=== PATIENT | female | born 1995 | race Caucasian/White ===

== ENCOUNTER 2016-10-19 16:40 | Emergency (ER) ==
[2016-10-19 16:52] VITALS: BP 160/106; TEMP 98.8; BMI 27.1
[2016-10-19] MEDS ORDERED: ATIVAN IM STA (16:59)
[2016-10-19] MEDS ORDERED: LOPRESSOR PO STA (16:59)
[2016-10-19 17:09] LABS: BASOPHILS # (AUTO) 0.1 K/uL (0-0.2); BASOPHILS % (AUTO) 0.7 % (0.0-3.0); EOSINOPHILS # (AUTO) 0.2 K/ul (0.0-0.7); EOSINOPHILS % (AUTO) 1.8 % (0.0-7.0); HEMATOCRIT 40.5 % (37.0-47.0); IMMATURE GRANULOCYTE % (AUTO) 0.4 % (0.0-5.0); LYMPHOCYTES # (AUTO) 2.7 K/uL (0.60-3.4); LYMPHOCYTES % (AUTO) 25.5 (10.0-50.0); MEAN CORPUSCULAR HEMOGLOBIN 32.4 pg (27.0-31.0); MEAN CORPUSCULAR HGB CONC 34.6 (31.8-35.4); MEAN CORPUSCULAR VOLUME 93.8 fl (81.0-99.0); MONOCYTES # (AUTO) 0.5 K/uL (0.4-2.0); MONOCYTES % (AUTO) 5.1 (0-10); NEUTROPHILS # (AUTO) 7.1 K/ul (2.0-6.9); NEUTROPHILS % (AUTO) 66.5; PLATELET COUNT 281 10^3/uL (140-440); RED BLOOD COUNT 4.32 10^6/ul (4.20-5.40); WHITE BLOOD COUNT 10.69 K/ul (4.6-10.2)
[2016-10-19 17:22] LABS: SERUM PREGNANCY INTERNAL QC INTERNAL QC VALID
[2016-10-19 17:49] LABS: ALANINE AMINOTRANSFERASE 17 U/L (12-78); ALBUMIN 4.3 g/dL (3.4-5.0); ALBUMIN/GLOBULIN RATIO 1.39; ALKALINE PHOSPHATASE 68 U/L (42-98); ASPARTATE AMINO TRANSFERASE 14 U/L (15-37); BLOOD UREA NITROGEN 13 mg/dL (7-18); BUN/CREATININE RATIO 16.45; CALCIUM 9.3 mg/dL (8.2-10.2); CARBON DIOXIDE 23 mmol/L (21-32); CHLORIDE 106 mmol/L (98-107); CREATINE KINASE 47 U/L; CREATININE 0.79 mg/dL (0.60-1.30); GLUCOSE 89 mg/dL (70-110); SODIUM 141 mmol/L (136-145); TOTAL PROTEIN 7.4 g/dL (6.4-8.2)
[2016-10-19] MEDS ORDERED: NORVASC PO STA (17:57)
--- NOTE | 2016-10-19 18:12 | ED.PDOC ---
General ED Provider: Dr. MARGARITO LEONE-ER Chief Complaint: Hypertension Stated Complaint: my bp is up and my pulse is racing Time Seen by Physician: 16:45 Mode of Arrival: Walk-In Information Source: Patient Exam Limitations: No limitations Primary Care Provider: MARGARITO LEONE Nursing and Triage Documentation Reviewed and Agree: Yes Psychological Complaint Exam - Psychiatric Complaint/Exam Patient Complains Of: Present: Other Onset/Duration: thsi evening Symptoms Are: Still present Episodes Lasting: Hours Initial Severity: Mild Current Severity: Moderate Character: Present: Fearful, Anxious Associated Signs And Symptoms: Denies: Hostile, Confused, Hallucinating, Paranoid behavior, Sleep disturbance, Appetite change Completed Suicide Risk Factors: Patient In Custody Of Police: No Social Withdrawal Present: No Social Isolation Present: No Prior Suicide Attempt: No Injury From Prior Suicide Attempt: No Related Surgical History: Reports: None Patient Uncooperative For Exam: No Mood: Present: Anxious Appearance: Present: Clean Thought Process: Present: Logical Insight: Present: Good Memory: Intact Judgement: Normal Danger To Others: No Patient Medically Stable For: Psych evaluation Differential Diagnoses: Anxiety Review of Systems - Review Of Systems Constitutional: Reports: No symptoms Eyes: Reports: No symptoms Ears, Nose, Mouth, Throat: Reports: No symptoms Respiratory: Reports: No symptoms Cardiac: Reports: No symptoms GI: Reports: No symptoms : Reports: No symptoms Musculoskeletal: Reports: No symptoms Skin: Reports: No symptoms Neurological: Reports: Anxiety Endocrine: Reports: No symptoms Hematologic/Lymphatic: Reports: No symptoms All Other Systems: Reviewed and Negative Past Medical History - Past Medical History Previously Healthy: Yes Endocrine: Reports: None Cardiovascular: Reports: None Respiratory: Reports: None Hematological: Reports: None Gastrointestinal: Reports: None Genitourinary: Reports: None Neuro/Psych: Reports: Anxiety Musculoskeletal: Reports: None Cancer: Reports: None Last Menstrual Period: 10/04/16 - Surgical History General Surgical History: Reports: Unknown - Family History Family History: Reports: Unknown - Social History Smoking Status: Current every day smoker Hx Substance Use: No Alcohol Screening: Occasionally Lives: With family - Immunizations Tetanus Shot up to Date: Yes Physical Exam - Physical Exam Appearance: Well-appearing, No pain distress, Well-nourished Eyes: FIONA, EOMI, Conjunctiva clear ENT: Ears normal, Nose normal, Oropharynx normal Neck: Supple Respiratory: Airway patent, Breath sounds clear, Breath sounds equal, Respirations nonlabored Cardiovascular: RRR, Pulses normal, No rub, No murmur, Tachycardia GI/: Soft, Nontender, No masses, Bowel sounds normal, No Organomegaly Musculoskeletal: Normal strength, ROM intact, No edema, No calf tenderness Skin: Warm, Dry, Normal color Neurological: Sensation intact, Motor intact, Reflexes intact, Cranial nerves intact, Alert, Oriented Psychiatric: Anxious Re-Evaluation - Re-Evaluation Time of Re-Evaluation: 18:12 Status: Improved (bp 130/85) Vital Signs Stable: Yes Pain Level: 0 Appearance: NAD Lungs: Clear Skin: Warm and Dry Neuro: Alert and Oriented X3 CV: RRR Critical Care Note - Critical Care Note Total Time (mins): 0 Course - Course Hematology/Chemistry: 10/19/16 16:46 10/19/16 17:00 Orders, Labs, Meds: Lab Review 10/19/16 10/19/16 16:46 17:00 WBC 10.69 H RBC 4.32 Hgb 14.0 Hct 40.5 MCV 93.8 MCH 32.4 H MCHC 34.6 RDW Coeff of Johnathan 12.0 Plt Count 281 Immature Gran % (Auto) 0.4 Neut % (Auto) 66.5 Lymph % (Auto) 25.5 Pope % (Auto) 5.1 Eos % (Auto) 1.8 Baso % (Auto) 0.7 Immature Gran # (Auto) 0.0 Neut # 7.1 H Lymph # 2.7 Pope # 0.5 Eos # 0.2 Baso # 0.1 D-Dimer < 0.19 L Sodium 141 Potassium 4.0 Chloride 106 Carbon Dioxide 23 Anion Gap 16.0 BUN 13 Creatinine 0.79 Estimated GFR (MDRD) 90.00 BUN/Creatinine Ratio 16.45 Glucose 89 Calcium 9.3 Total Bilirubin 0.20 AST 14 L ALT 17 Alkaline Phosphatase 68 Total Creatine Kinase 47 Troponin I < 0.0100 Total Protein 7.4 Albumin 4.3 Globulin 3.1 Albumin/Globulin Ratio 1.39 TSH 0.899 Free T4 0.90 Serum , Qual Negative Orders Category Date Time Status EKG-(ED ONLY) Stat CARDIO 10/19/16 16:46 Completed Director Of Entertainment [ED MANAGER INVESTMENT BANKING APPLIED] .ONCE EMERGENCY 10/19/16 17:00 Active CBC W/ AUTO DIFF Stat LAB 10/19/16 16:46 Completed COMPREHENSIVE METABOLIC PANEL Stat LAB 10/19/16 17:00 Completed CREATINE KINASE Stat LAB 10/19/16 17:00 Completed D-DIMER Stat LAB 10/19/16 17:00 Completed FREE T4 (FREE THYROXINE) Stat LAB 10/19/16 17:00 Completed SERUM Stat LAB 10/19/16 17:00 Completed THYROID STIMULATING HORMONE Stat LAB 10/19/16 17:00 Completed TROPONIN I Stat LAB 10/19/16 17:00 Completed Amlodipine Besylate [Norvasc] MEDS 10/19/16 17:57 Discontinued 5 mg PO ONCE STA Lorazepam Inj [Ativan] MEDS 10/19/16 16:59 Discontinued 1 mg IM ONCE STA Metoprolol Tartrate [Lopressor] MEDS 10/19/16 16:59 Discontinued 25 mg PO ONCE STA Medications Discontinued Medications Generic Name Dose Route Start Last Admin Trade Name Freq PRN Reason Stop Dose Admin Amlodipine Besylate 5 mg 10/19/16 17:57 Norvasc PO 10/19/16 17:58 ONCE STA Lorazepam 1 mg 10/19/16 16:59 10/19/16 17:07 Ativan IM 10/19/16 17:00 1 mg ONCE STA Administration Metoprolol Tartrate 25 mg 10/19/16 16:59 10/19/16 17:06 Lopressor PO 10/19/16 17:00 25 mg ONCE STA Administration Vital Signs: Temp Pulse Resp BP Pulse Ox 10/19/16 16:40 98.8 F 107 H 16 160/106 H 98 Departure - Departure Time of Disposition: 18:12 Disposition: HOME SELF-CARE Discharge Problem: Panic anxiety syndrome Instructions: Generalized Anxiety Disorder (ED) Condition: Good Pt referred to PMD for follow-up: Yes Additional Instructions: lopressor 25mg bid #60--ativan 0.25 q 6hrs prn anxiety #15--see me next week Allergies/Adverse Reactions: Allergies morphine Adverse Reaction (Verified 10/19/16 16:48) Chest Tightness Home Medications: Ambulatory Orders Vilazodone Hydrochloride [Viibryd] 10 mg PO DAILY 10/19/16 Disposition Discussed With: Patient
== END 2016-10-19 18:28 | disposition home or self-care (01) ==
LOC: ED 16:40
DX: F41.0 Panic disorder [episodic paroxysmal anxiety] (principal); I10 Essential (primary) hypertension; F17.210 Nicotine dependence, cigarettes, uncomplicated
CPT/HCPCS: 36415; 80053; 82550; 84439; 84443; 84484; 84703; 85025; 85379; 93005; 93010; 96372; 99283

== ENCOUNTER 2016-11-30 13:38 | Emergency (ER) ==
[2016-11-30 13:45] VITALS: TEMP 97.8; BMI 29.2
--- NOTE | 2016-11-30 13:51 | ED.PDOC ---
General ED Provider: Dr. VIRGINIA DEUTSCH JR Chief Complaint: Psychiatric Complaint Stated Complaint: WOKE UP WITH CHEST PAIN. FELT LIKE DIFFICULTY BREATHING. ABD TIGHT. ARMS AND LEGS NUMB[End]97.8 118 24 98% 145/86 7/10 ANXIOUS, CHEST PAIN, ABD TIGHTNESS[End]"I KNOW IT IS MY ANXIETY BUT I AM THINKING SOMETHING ELSE IS WRONG" Time Seen by Physician: 13:49 Mode of Arrival: Walk-In Information Source: Patient Exam Limitations: No limitations Primary Care Provider: MARGARITO LEONE Nursing and Triage Documentation Reviewed and Agree: No Review of Systems - Review Of Systems Constitutional: Reports: Malaise Eyes: Reports: No symptoms Ears, Nose, Mouth, Throat: Reports: No symptoms Respiratory: Reports: Short of air Cardiac: Reports: Chest pain, Palpitations GI: Reports: No symptoms : Reports: No symptoms Musculoskeletal: Reports: Muscle pain, Neck pain Skin: Reports: No symptoms Neurological: Reports: Anxiety Endocrine: Reports: No symptoms Hematologic/Lymphatic: Reports: No symptoms All Other Systems: Other Past Medical History - Past Medical History Previously Healthy: Yes Endocrine: Reports: None Cardiovascular: Reports: None, Hypertension, Other (CHEST HURTS EVERY DAY.) Respiratory: Reports: None Hematological: Reports: None Gastrointestinal: Reports: None Genitourinary: Reports: None, Other ( induced HTN treated for 6 months) Neuro/Psych: Reports: Anxiety, Depression Musculoskeletal: Reports: None Cancer: Reports: None Last Menstrual Period: NOW Other Pertinent Past Medical History: HTN DEPR ANX ANXIOUS . - Surgical History General Surgical History: Reports: Appendectomy, Orthopedic (right arm surgery) , Unknown - Family History Family History: Reports: Unknown - Social History Smoking Status: Current every day smoker Hx Substance Use: No Alcohol Screening: None Physical Exam - Physical Exam Appearance: Well-appearing, Thin Ill-appearing: Mild Pain Distress: Mild Eyes: FIONA ENT: Ears normal, Nose normal, Oropharynx normal Neck: Supple Respiratory: Airway patent, Breath sounds clear, Breath sounds equal, Respirations nonlabored Cardiovascular: RRR, Pulses normal, No rub, No murmur GI/: Soft, Nontender, No masses, Bowel sounds normal, No Organomegaly Musculoskeletal: Normal strength, ROM intact, No edema, No calf tenderness Skin: Warm, Dry, Normal color Neurological: Sensation intact, Motor intact, Reflexes intact, Cranial nerves intact, Alert, Oriented Psychiatric: Anxious (TAPPING FOOT SHAKING NO FOXCAL SIGNS) Interpretation - EKG Interpretation Time of EKG #1: 14:01 Rate: Normal Rhythm: Sinus Ectopy: None [place]: [place] ST Segment: Normal Re-Evaluation - Re-Evaluation Time of Re-Evaluation: 15:17 (discussed plan is anxious aout monitoring BP " I can do it") Status: Improved Vital Signs Stable: Yes Pain Level: 5 Appearance: NAD Lungs: Clear Skin: Warm and Dry Neuro: Alert and Oriented X3 CV: RRR Critical Care Note - Critical Care Note Total Time (mins): 0 Course - Course Orders, Labs, Meds: Orders Category Date Time Status EKG-(ED ONLY) Stat CARDIO 11/30/16 14:11 Completed Metoprolol Tartrate [Lopressor] MEDS 11/30/16 14:12 Discontinued 25 mg PO ONCE STA Medications Discontinued Medications Generic Name Dose Route Start Last Admin Trade Name Freq PRN Reason Stop Dose Admin Metoprolol Tartrate 25 mg 11/30/16 14:12 Lopressor PO 11/30/16 14:13 ONCE STA Vital Signs: Temp Pulse Resp BP Pulse Ox 11/30/16 14:31 126/74 11/30/16 13:41 97.8 F 118 H 24 145/86 H 98 Departure - Departure Time of Disposition: 14:14 Disposition: HOME SELF-CARE Discharge Problem: Anxiety and depression Instructions: Anxiety (ED) Condition: Good Pt referred to PMD for follow-up: Yes Additional Instructions: RECHECK PMD THIS WEEK RETURN IF WORSE INCREASE LOPRESSOR TO 50 MG IN THE MORNING AND 25 MG AT NIGHT CHECK BLOOD PRESSURE ONCE A DAY AND RECORD DISCUSS COUNSELLING AND BLOOD PRESSURE WITH YOUR PHYSICIAN Prescriptions: Metoprolol Tartrate [Lopressor] 50 mg PO BID #60 tablet Allergies/Adverse Reactions: Allergies morphine Adverse Reaction (Verified 11/30/16 13:40) Chest Tightness Home Medications: Ambulatory Orders Vilazodone Hydrochloride [Viibryd] 20 mg PO DAILY 10/19/16 Metoprolol Tartrate [Lopressor] 25 mg PO BID 11/30/16 Metoprolol Tartrate [Lopressor] 50 mg PO BID #60 tablet 11/30/16
[2016-11-30] MEDS ORDERED: LOPRESSOR PO STA (14:12)
[2016-11-30 15:23] VITALS: BP 139/89
== END 2016-11-30 15:25 | disposition home or self-care (01) ==
LOC: ED 13:38
DX: F41.9 Anxiety disorder, unspecified (principal); F32.9 Major depressive disorder, single episode, unspecified; I10 Essential (primary) hypertension; F17.210 Nicotine dependence, cigarettes, uncomplicated
CPT/HCPCS: 93005; 93010; 99283

== ENCOUNTER 2016-12-11 08:35 | Outpatient (CLI) ==
[2016-12-11 08:46] LABS: BASOPHILS # (AUTO) 0.1 K/uL (0-0.2); BASOPHILS % (AUTO) 0.8 % (0.0-3.0); EOSINOPHILS # (AUTO) 0.2 K/ul (0.0-0.7); EOSINOPHILS % (AUTO) 2.3 % (0.0-7.0); HEMATOCRIT 38.6 % (37.0-47.0); HEMOGLOBIN 13.8 g/dl (12.0-16.0); IMMATURE GRANULOCYTE % (AUTO) 0.4 % (0.0-5.0); LYMPHOCYTES # (AUTO) 2.4 K/uL (0.60-3.4); LYMPHOCYTES % (AUTO) 25.5 (10.0-50.0); MEAN CORPUSCULAR HEMOGLOBIN 32.8 pg (27.0-31.0); MEAN CORPUSCULAR HGB CONC 35.8 (31.8-35.4); MEAN CORPUSCULAR VOLUME 91.7 fl (81.0-99.0); MONOCYTES # (AUTO) 0.5 K/uL (0.4-2.0); MONOCYTES % (AUTO) 5.5 (0-10); NEUTROPHILS % (AUTO) 65.5; PLATELET COUNT 284 10^3/uL (140-440); RED BLOOD COUNT 4.21 10^6/ul (4.20-5.40); WHITE BLOOD COUNT 9.21 K/ul (4.6-10.2)
[2016-12-11 08:58] LABS: SERUM PREGNANCY INTERNAL QC INTERNAL QC VALID
[2016-12-11 09:28] LABS: ALBUMIN 4.2 g/dL (3.4-5.0); ALBUMIN/GLOBULIN RATIO 1.31; BILIRUBIN,TOTAL 0.27 mg/dL (0.00-1.20); BUN/CREATININE RATIO 13.51; CALCIUM 9.6 mg/dL (8.2-10.2); CREATININE 0.74 mg/dL (0.60-1.30); TOTAL PROTEIN 7.4 g/dL (6.4-8.2)
--- NOTE | 2016-12-11 09:28 | US ---
EXAM: Ultrasound of the right upper quadrant. HISTORY: Chest pain. COMPARISON: 10/29/2007 CT. TECHNIQUE: Norton scale, color and doppler ultrasound evaluation of the right upper quadrant. FINDINGS: The visualized portions of the pancreas are unremarkable. The pancreatic tail is obscured by bowel g as. The liver demonstrates homogeneous echogenicity. No discrete hepatic lesions are seen. Hepatopetal f low is seen in the portal vein. The gallbladder is not abnormally distended. No gallstones, gallbladder wall thickening or perichole cystic fluid is seen. The proximal common bile duct is normal in size measuring 3 mm. The right kidney measures 10.1 x 3.8 x 4.0 cm. No right hydronephrosis is seen. IMPRESSION: Unremarkable right upper quadrant ultrasound.
== END 2016-12-11 08:36 | disposition home or self-care (01) ==
LOC: RAD 08:35
PROVIDERS: ATTEND Family Medicine
DX: R07.9 Chest pain, unspecified (principal)
CPT/HCPCS: 36415; 80053; 84439; 84443; 84703; 85025

== ENCOUNTER 2016-12-15 13:54 | Emergency (ER) ==
[2016-12-15 14:03] VITALS: BP 125/84; TEMP 100; BMI 27.4
[2016-12-15] MEDS ORDERED: SODIUM CHLORIDE 1,000 ML IV STA (14:14)
[2016-12-15] MEDS ORDERED: TORADOL IVP STA (14:15)
[2016-12-15] MEDS ORDERED: ATIVAN IVP STA (14:15)
[2016-12-15 14:41] LABS: BASOPHILS # (AUTO) 0.1 K/uL (0-0.2); BASOPHILS % (AUTO) 0.4 % (0.0-3.0); EOSINOPHILS # (AUTO) 0.2 K/ul (0.0-0.7); EOSINOPHILS % (AUTO) 1.3 % (0.0-7.0); HEMATOCRIT 36.5 % (37.0-47.0); HEMOGLOBIN 13.2 g/dl (12.0-16.0); IMMATURE GRANULOCYTE % (AUTO) 0.5 % (0.0-5.0); LYMPHOCYTES # (AUTO) 3.2 K/uL (0.60-3.4); LYMPHOCYTES % (AUTO) 17.9 (10.0-50.0); MEAN CORPUSCULAR HEMOGLOBIN 33.2 pg (27.0-31.0); MEAN CORPUSCULAR HGB CONC 36.2 (31.8-35.4); MEAN CORPUSCULAR VOLUME 91.7 fl (81.0-99.0); MONOCYTES # (AUTO) 0.7 K/uL (0.4-2.0); MONOCYTES % (AUTO) 4.1 (0-10); NEUTROPHILS # (AUTO) 13.7 K/ul (2.0-6.9); NEUTROPHILS % (AUTO) 75.8; PLATELET COUNT 295 10^3/uL (140-440); RED BLOOD COUNT 3.98 10^6/ul (4.20-5.40); WHITE BLOOD COUNT 18.06 K/ul (4.6-10.2)
[2016-12-15 14:43] LABS: BILIRUBIN,URINE Negative (NEGATIVE); KETONES,URINE Negative (NEGATIVE); LEUKOCYTE ESTERASE ,URINE 1+ (NEGATIVE); NITRITE,URINE Negative (NEGATIVE); PH,URINE 7.5 (5-9); PROTEIN,URINE Negative (NEGATIVE); URINE, BLOOD Negative (NEGATIVE)
[2016-12-15 14:46] LABS: ADD URINE MICROSCOPIC YES
[2016-12-15 14:57] LABS: FLU INTERNAL QC INTERNAL QC VALID; RAPID FLU A NEGATIVE (NEGATIVE); RAPID FLU B NEGATIVE (NEGATIVE); SERUM PREGNANCY INTERNAL QC INTERNAL QC VALID
[2016-12-15 15:11] LABS: ERYTHROCYTE SEDIMENTATION RATE 23 mm/hr (0-20); ESR INTERNAL QC INTERNAL QC VALID
[2016-12-15 15:12] LABS: ALANINE AMINOTRANSFERASE 14 U/L (12-78); ALBUMIN 3.9 g/dL (3.4-5.0); ALBUMIN/GLOBULIN RATIO 1.34; ALKALINE PHOSPHATASE 68 U/L (42-98); AMYLASE 35 U/L (25-115); ANION GAP 11.7; ASPARTATE AMINO TRANSFERASE 11 U/L (15-37); BILIRUBIN,TOTAL 0.31 mg/dL (0.00-1.20); BLOOD UREA NITROGEN 11 mg/dL (7-18); BUN/CREATININE RATIO 15.71; CALCIUM 8.9 mg/dL (8.2-10.2); CARBON DIOXIDE 24 mmol/L (21-32); CHLORIDE 104 mmol/L (98-107); CREATINE KINASE 45 U/L; GLUCOSE 85 mg/dL (70-110); LIPASE 12 U/L (8-78); POTASSIUM 3.7 mmol/L (3.5-5.10); SODIUM 136 mmol/L (136-145); TOTAL PROTEIN 6.8 g/dL (6.4-8.2)
--- NOTE | 2016-12-15 15:55 | CT ---
EXAM: CT chest without contrast HISTORY: Chest pain COMPARISON: None TECHNIQUE: CT chest performed without intravenous contrast. Coronal and sagittal reformatted image s obtained. FINDINGS: Thyroid and thoracic inlet appear normal. Heart normal in size. No pericardial effusion . Aorta normal in caliber. Evaluation for lymphadenopathy limited without contrast. No lymphadeno ayala identified. Normal residual thymic tissue present. Esophagus unremarkable. No acute abnorma lities of the bones. Central airway patent. Lungs are clear. No pleural effusion or pneumothorax. Please see separate report CT abdomen pelvis regarding findings in the upper abdomen. IMPRESSION: Normal noncontrast CT chest.
--- NOTE | 2016-12-15 16:02 | CT ---
EXAM: CT abdomen pelvis without contra HISTORY: Abdominal pain COMPARISON: None TECHNIQUE: CT abdomen pelvis performed without intravenous contrast. Coronal and sagittal reformat lorenzo images obtained. FINDINGS: Please refer to separate report CT chest regarding findings in the lower chest. No free air. No acute abnormalities of the bones. Evaluation organ parenchyma limited without contrast. L iver mildly enlarged versus Reidel variant. Liver otherwise unremarkable. Gallbladder appears nor mal. Pancreas unremarkable. Spleen unremarkable. Adrenals unremarkable. No hydronephrosis or nep hrolithiasis. Bladder unremarkable. Uterus unremarkable. Aorta normal in caliber. No lymphadenop athy or ascites. Stomach appears normal. No dilated loops small bowel. Patient status post append ectomy. Colon unremarkable. Small fat-containing umbilical hernia. No inflammatory stranding iden tified in the abdomen or pelvis. IMPRESSION: 1. No acute abnormality identified in the abdomen. 2. Liver mildly enlarged versus Reidel variant.
--- NOTE | 2016-12-15 16:27 | ED.PDOC ---
General ED Provider: Dr. MARGARITO LEONE-ER Chief Complaint: Chest Pain Stated Complaint: my chest is hurting on the right side and i hurt down below Time Seen by Physician: 13:55 Mode of Arrival: Walk-In Information Source: Patient, Family Exam Limitations: No limitations Primary Care Provider: MARGARITO LEONE Nursing and Triage Documentation Reviewed and Agree: Yes Cardiovascular Complaint Exam - Palpitations Complaint/Exam Onset/Duration: 24hrs Symptoms Are: Still present Initial Severity: Mild Current Severity: Mild Character: Reports: Fast, Pounding Aggravating: Reports: None Alleviating: Reports: None Associated Signs and Symptoms: Denies: Lightheadedness, Dizziness, Syncope, Chest pain, Shortness of breath, Diaphoresis, Nausea, Vomiting Related History: Similar episode Related Surgical History: Reports: None Cardiac Risk Factors: Reports: None Thyroid Exam: Normal Quality Indicator For Non-Traumatic Chest Pain/Syncope: EKG Performed Review of Systems - Review Of Systems Constitutional: Reports: No symptoms Eyes: Reports: No symptoms Ears, Nose, Mouth, Throat: Reports: No symptoms Respiratory: Reports: No symptoms Cardiac: Reports: Chest pain, Palpitations GI: Reports: No symptoms : Reports: No symptoms Musculoskeletal: Reports: No symptoms Skin: Reports: No symptoms Neurological: Reports: No symptoms Endocrine: Reports: No symptoms Hematologic/Lymphatic: Reports: No symptoms All Other Systems: Reviewed and Negative Past Medical History - Past Medical History Previously Healthy: Yes Endocrine: Reports: None Cardiovascular: Reports: None, Hypertension, Other (CHEST HURTS EVERY DAY.) Respiratory: Reports: None Hematological: Reports: None Gastrointestinal: Reports: None Genitourinary: Reports: None, Other ( induced HTN treated for 6 months) Neuro/Psych: Reports: Anxiety, Depression Musculoskeletal: Reports: None Cancer: Reports: None Last Menstrual Period: last week Other Pertinent Past Medical History: HTN DEPR ANX ANXIOUS . - Surgical History General Surgical History: Reports: Appendectomy, Orthopedic (right arm surgery) , Unknown - Family History Family History: Reports: Unknown - Social History Smoking Status: Former smoker Hx Substance Use: No Alcohol Screening: Occasionally Lives: With family Physical Exam - Physical Exam Appearance: Well-appearing Pain Distress: Mild Eyes: FIONA ENT: Ears normal, Nose normal, Oropharynx normal Neck: Supple Respiratory: Airway patent, Breath sounds clear, Breath sounds equal, Respirations nonlabored Cardiovascular: RRR, Pulses normal, No rub, No murmur GI/: Soft, Nontender, No masses, Bowel sounds normal, No Organomegaly Musculoskeletal: Normal strength, ROM intact, No edema, No calf tenderness Skin: Warm, Dry, Normal color Neurological: Sensation intact, Motor intact, Reflexes intact, Cranial nerves intact, Alert, Oriented Psychiatric: Affect appropriate, Mood appropriate, Anxious Interpretation - Radiology Interpretation Radiology Interpretation By: Radiologist Radiology Results: Negative Exam Interpreted: CT Scan Re-Evaluation - Re-Evaluation Time of Re-Evaluation: 16:27 Status: Improved Vital Signs Stable: Yes Pain Level: 0 Appearance: NAD Lungs: Clear Skin: Warm and Dry Neuro: Alert and Oriented X3 CV: RRR Critical Care Note - Critical Care Note Total Time (mins): 0 Course - Course Hematology/Chemistry: 12/15/16 14:35 12/15/16 14:35 Orders, Labs, Meds: Lab Review 12/15/16 14:35 WBC 18.06 H RBC 3.98 L Hgb 13.2 Hct 36.5 L MCV 91.7 MCH 33.2 H MCHC 36.2 H RDW Coeff of Johnathan 11.7 Plt Count 295 Immature Gran % (Auto) 0.5 Neut % (Auto) 75.8 Lymph % (Auto) 17.9 [place] % (Auto) 4.1 Eos % (Auto) 1.3 Baso % (Auto) 0.4 Immature Gran # (Auto) 0.1 Neut # 13.7 H Lymph # 3.2 [place] # 0.7 Eos # 0.2 Baso # 0.1 ESR 23 H D-Dimer (Manual) 385.79 Sodium 136 Potassium 3.7 Chloride 104 Carbon Dioxide 24 Anion Gap 11.7 BUN 11 Creatinine 0.70 Estimated GFR (MDRD) 104.00 BUN/Creatinine Ratio 15.71 Glucose 85 Calcium 8.9 Total Bilirubin 0.31 AST 11 L ALT 14 Alkaline Phosphatase 68 Total Creatine Kinase 45 Troponin I < 0.0100 Total Protein 6.8 Albumin 3.9 Globulin 2.9 Albumin/Globulin Ratio 1.34 Amylase 35 Lipase 12 Serum , Qual Negative Urine Color Yellow Urine Clarity Clear Urine pH 7.5 Ur Specific [place] 1.020 Urine Protein Negative Urine Glucose (UA) Negative Urine Ketones Negative Urine Blood Negative Urine Nitrite Negative Urine Bilirubin Negative Urine Urobilinogen 0.2 Ur Leukocyte Esterase 1+ Urine Microscopic WBC 5-10 Ur Squamous Epith Cells 2-5 Influenza A (Rapid) Negative Influenza B (Rapid) Negative Orders Category Date Time Status EKG-(ED ONLY) Stat CARDIO 12/15/16 14:13 Completed Accounts Payable Assistant [ED SEAM RUBBER APPLIED] .ONCE EMERGENCY 12/15/16 14:14 Active ED IV/MEDIPORT/POWERPORT .ONCE EMERGENCY 12/15/16 14:14 Active AMYLASE Stat LAB 12/15/16 14:35 Completed CBC W/ AUTO DIFF Stat LAB 12/15/16 14:35 Completed COMPREHENSIVE METABOLIC PANEL Stat LAB 12/15/16 14:35 Completed CREATINE KINASE Stat LAB 12/15/16 14:35 Completed D-DIMER Stat LAB 12/15/16 14:35 Completed ESR Stat LAB 12/15/16 14:35 Completed LIPASE Stat LAB 12/15/16 14:35 Completed MOLECULAR GROUP A STREP Stat LAB 12/15/16 14:35 Results RAPID FLU A/B Stat LAB 12/15/16 14:35 Completed SERUM Stat LAB 12/15/16 14:35 Completed STREP SCREEN Stat LAB 12/15/16 14:35 Results TROPONIN I Stat LAB 12/15/16 14:35 Completed URINALYSIS C & S IF INDICATED Stat LAB 12/15/16 14:35 Completed URINE CULTURE Stat LAB 12/15/16 14:35 Received 0.9 % Sodium Chloride [Saline Flush] MEDS 12/15/16 14:14 Ordered 1 syr IVF PRN PRN Ketorolac Tromethamine [Toradol] MEDS 12/15/16 14:15 Discontinued 30 mg IVP ONCE STA Lorazepam Inj [Ativan] MEDS 12/15/16 14:15 Discontinued 1 mg IVP ONCE STA Sodium Chloride 0.9% [Sodium Chloride] 1,000 ml MEDS 12/15/16 14:14 Active IV 100 mls/hr CT ABDOMEN/PELVIS WO CONTRAST Stat RADS 12/15/16 14:[address] CHEST W/O CONTRAST Stat RADS 12/15/16 14:14 Completed Medications Generic Name Dose Route Start Last Admin Trade Name Freq PRN Reason Stop Dose Admin Sodium Chloride 1,000 mls @ 100 mls/hr 12/15/16 14:14 12/15/16 15:21 Sodium Chloride IV 12/16/16 00:13 100 mls/hr .Q10H STA Administration Sodium Chloride 1 syr 12/15/16 14:14 12/15/16 15:22 Saline Flush IVF 1 syr PRN PRN Administration To flush IV Discontinued Medications Generic Name Dose Route Start Last Admin Trade Name Jorge PRN Reason Stop Dose Admin Ketorolac Tromethamine 30 mg 12/15/16 14:15 12/15/16 15:18 Toradol IVP 12/15/16 14:16 30 mg ONCE STA Administration Lorazepam 1 mg 12/15/16 14:15 12/15/16 15:20 Ativan IVP 12/15/16 14:16 1 mg ONCE STA Administration Vital Signs: Temp Pulse Resp BP Pulse Ox 12/15/16 13:54 100.0 F H 82 20 125/84 98 KATHYA Risk Score KATHYA Risk Score: Risk Score Odds of by 30D 0 0.1 (0.1-0.2) 1 0.3 (0.2-0.3) 2 0.4 (0.3-0.5) 3 0.7 (0.6-0.9) 4 1.2 (1.0-1.5) 5 2.2 (1.9-2.6) 6 3.0 (2.5-3.6) 7 4.8 (3.8-6.1) Departure - Departure Time of Disposition: 16:27 Disposition: HOME SELF-CARE Discharge Problem: Chest pain Urinary tract infection Qualifiers: Urinary tract infection type: site unspecified Hematuria presence: without hematuria Qualifier Code: (N39.0) Urinary tract infection, site not specified Instructions: Chest Pain (ED) Condition: Good Pt referred to PMD for follow-up: Yes Additional Instructions: get tests this week--cipro 250mg bid x 5 dayxs--f/u with me end of this week Allergies/Adverse Reactions: Allergies morphine Adverse Reaction (Verified 12/15/16 14:03) Chest Tightness Home Medications: Ambulatory Orders Metoprolol Tartrate [Lopressor] 25 mg PO BID 11/30/16 Lorazepam [Ativan] 0.25 mg PO DAILY PRN 12/15/16 Pantoprazole Sodium [Protonix] 40 mg PO DAILY 12/15/16 Disposition Discussed With: Patient, Family
== END 2016-12-15 17:00 | disposition home or self-care (01) ==
LOC: ED 13:54
DX: R07.9 Chest pain, unspecified (principal); N39.0 Urinary tract infection, site not specified; R00.2 Palpitations; I10 Essential (primary) hypertension
CPT/HCPCS: 36415; 80053; 81001; 82150; 82550; 83690; 84484; 84703; 85025; 85379; 85651; 87086; 87651; 87804; 87880; 93005; 93010; 96361; 96374; 96375; 99283

== ENCOUNTER 2016-12-16 08:53 | Outpatient (CLI) ==
[2016-12-15 14:03] VITALS: BMI 27.4
--- NOTE | 2016-12-16 11:23 | DI ---
EXAM: Upper GI and small bowel follow-through History: Chest pain, abdominal pain. Technique: Patient was given oral barium and multiple spot films of the esophagus, stomach, duodenu m and small bowel were obtained in various projections. Findings: Normal course and caliber of the esophagus. No esophageal mucosal lesions or filling def ects. The gastroesophageal junction is patent. No hiatal hernia. No gastroesophageal reflux. The stomach is normal in appearance and so was the duodenum. The course and caliber of the small bowel is within normal limits. No small bowel wall thickening a nd no strictures. No extravasation of contrast material. The contrast reached the colon at 1 hour. Impression: Normal study.
== END 2016-12-16 08:54 | disposition home or self-care (01) ==
LOC: RAD 08:53
PROVIDERS: ATTEND Family Medicine
DX: R07.9 Chest pain, unspecified (principal)

== ENCOUNTER 2016-12-17 06:35 | Outpatient (CLI) | END 2016-12-17 06:36 | disposition home or self-care (01) | LOC: CAR 06:35 | PROVIDERS: ATTEND Family Medicine | DX: R07.9 Chest pain, unspecified (principal) ==

== ENCOUNTER 2016-12-18 07:41 | Outpatient (CLI) ==
--- NOTE | 2016-12-18 10:19 | NM ---
EXAM: Hepatobiliary imaging HISTORY: Abdominal pain COMPARISON: Limited abdominal ultrasound on 12/11/2016 was unremarkable. TECHNIQUE: Patient was injected 5.3 mCi of technetium 99m Choletec intravenously. Multiple anterior scintigraphic images of the right upper quadrant region of the abdomen were obtained up to 1 hour i nterval. The patient was infused 1.6 mcg of cholecystokinin intravenously. Gallbladder ejection fr action was calculated. FINDINGS: There is normal visualization of liver, gallbladder, bile duct and small bowel loops. Gal lbladder ejection fraction is 64%. IMPRESSION: Normal study
--- NOTE | 2016-12-18 13:45 | ECHO2D ---
Date of Exam: 12/17/16 Ordering Physician: MARGARITO LEONE Reason for Echo: CHEST PAIN M-Mode Normal Adult Results LV Dimensions Normal Adult Results AoV Opening excursions >1.6 >1.6 LVEDD-base- 3.5-5.8 4.0 Ao root dimensions 2.0-3.7 2.8 LVESD-base- 3.1-4.6 L. Atrium dimensions 1.9-3.8 3.6 Post. Wall thickness 0.8-1.1 1.0 IV septum (thickness) 0.7-1.2 1.0 Post. Wall excursion 0.72-1.3 NORMAL Septal motion NORMAL Systolic motion R. Ventricular cavity 1.5-2.0 NORMAL LVEF 60% 53% Paradoxical septal wall motion NORMAL 2-D : 2-D M Mode Echocardiogram was performed using apical four chamber and left parasternal long and short axis views. Mitral, tricuspid and aortic valves appear to be normal. Contractility of the left ventricle seems to be normal, so is the cavity size. Left atrial cavity size and aortic root appear to be normal. There is no pericardial effusion. There is no thrombus noted in the left ventricular or left aortic cavity. No mitral valve prolapse noted. M-MODE: MV: NORMAL AV: NORMAL TV: NORMAL PV: CHAMBER SIZE: NORMAL WALL MOTION: NORMAL PERICARDIUM: NORMAL INTERPRETATION: 1. NORMAL 2 "D" "M" MODE ECHO MTDD
== END 2016-12-18 07:42 | disposition home or self-care (01) ==
LOC: RAD 07:41
PROVIDERS: ATTEND Family Medicine
DX: R07.9 Chest pain, unspecified (principal)

== ENCOUNTER 2017-04-24 14:57 | Outpatient (CLI) ==
[2017-04-24 15:33] LABS: BASOPHILS # (AUTO) 0.1 K/uL (0-0.2); BASOPHILS % (AUTO) 0.8 % (0.0-3.0); EOSINOPHILS # (AUTO) 0.2 K/ul (0.0-0.7); EOSINOPHILS % (AUTO) 2.5 % (0.0-7.0); HEMATOCRIT 42.4 % (37.0-47.0); HEMOGLOBIN 14.9 g/dl (12.0-16.0); IMMATURE GRANULOCYTE % (AUTO) 0.3 % (0.0-5.0); LYMPHOCYTES # (AUTO) 1.3 K/uL (0.60-3.4); LYMPHOCYTES % (AUTO) 14.9 (10.0-50.0); MEAN CORPUSCULAR HEMOGLOBIN 32.9 pg (27.0-31.0); MEAN CORPUSCULAR HGB CONC 35.1 (31.8-35.4); MEAN CORPUSCULAR VOLUME 93.6 fl (81.0-99.0); MONOCYTES # (AUTO) 0.6 K/uL (0.4-2.0); MONOCYTES % (AUTO) 6.6 (0-10); NEUTROPHILS # (AUTO) 6.5 K/ul (2.0-6.9); NEUTROPHILS % (AUTO) 74.9; PLATELET COUNT 227 10^3/uL (140-440); RED BLOOD COUNT 4.53 10^6/ul (4.20-5.40); WHITE BLOOD COUNT 8.74 K/ul (4.6-10.2)
[2017-04-24 15:44] LABS: BILIRUBIN,URINE Negative (NEGATIVE); KETONES,URINE Negative (NEGATIVE); LEUKOCYTE ESTERASE ,URINE Negative (NEGATIVE); NITRITE,URINE Negative (NEGATIVE); PROTEIN,URINE Negative (NEGATIVE); URINE, BLOOD 1+ (NEGATIVE)
[2017-04-24 15:46] LABS: ADD URINE MICROSCOPIC YES
[2017-04-24 15:49] LABS: SERUM PREGNANCY INTERNAL QC INTERNAL QC VALID
[2017-04-24 15:52] LABS: ALBUMIN 4.4 g/dL (3.4-5.0); ALBUMIN/GLOBULIN RATIO 1.22; BILIRUBIN,TOTAL 0.65 mg/dL (0.00-1.20); BUN/CREATININE RATIO 12.65; CALCIUM 9.8 mg/dL (8.2-10.2); CREATININE 0.79 mg/dL (0.60-1.30)
--- NOTE | 2017-04-24 16:42 | CT ---
EXAM: CT Abdomen without contrast. CT Pelvis without contrast. HISTORY: Lower abdominal pain. COMPARISON: 12/15/2016. TECHNIQUE: Multiple axial images of the abdomen and pelvis were obtained without intravenous contra st. Images were reformatted in the coronal plane. FINDINGS: Please note that evaluation of the abdominal and pelvic structures is limited due to lack of intravenous contrast. The lung bases are clear. No acute osseous abnormality identified. Right lobe of the liver is enlarged. Hepatic contours normal. The gallbladder, pancreas, spleen, a nd adrenal glands demonstrate normal contour. No calcified renal stones or hydronephrosis detected. There is mild fluid distension of some lower abdominal/pelvic small bowel loops. Liquid contents se en throughout the colon. Staple line along the cecum suggest prior appendectomy. Uterus demonstrat es normal contour. Urinary bladder is unremarkable. No free fluid or free air identified. Small f at-containing umbilical hernia is present. IMPRESSION: Findings suggest enterocolitis.
== END 2017-04-24 14:58 | disposition home or self-care (01) ==
LOC: RAD 14:57
PROVIDERS: ATTEND Family Medicine
DX: R10.30 Lower abdominal pain, unspecified (principal)
CPT/HCPCS: 36415; 74176; 80053; 81001; 82150; 83690; 84703; 85025

== ENCOUNTER 2017-07-22 04:36 | Emergency (ER) ==
[2017-07-22 05:03] VITALS: TEMP 98.3; BMI 30.7
[2017-07-22] MEDS ORDERED: ATIVAN IM STA (05:18)
--- NOTE | 2017-07-22 06:34 | ED.PDOC ---
General ED Provider: Dr. MARGARITO LENOE-ER Chief Complaint: Non-specific Complaint Stated Complaint: im having a panic attack Time Seen by Physician: 05:00 Mode of Arrival: Walk-In Information Source: Patient Exam Limitations: No limitations Primary Care Provider: MARGARITO LEONE Nursing and Triage Documentation Reviewed and Agree: Yes Psychological Complaint Exam - Psychiatric Complaint/Exam Patient Complains Of: Present: Other Onset/Duration: 30 min Symptoms Are: Still present Timing: Constant Initial Severity: Mild Current Severity: Mild Character: Present: Fearful, Anxious Aggravating: Reports: None Associated Signs And Symptoms: Denies: Hostile, Confused, Hallucinating, Paranoid behavior, Sleep disturbance, Appetite change Patient Accompanied By: Family Patient In Custody Of Police: No Social Withdrawal Present: No Social Isolation Present: No Prior Suicide Attempt: No Injury From Prior Suicide Attempt: No Related Surgical History: Reports: None Patient Uncooperative For Exam: No Mood: Present: Anxious Appearance: Present: Clean Thought Process: Present: Logical Insight: Present: Good Memory: Intact Judgement: Normal Danger To Others: No Differential Diagnoses: Anxiety, Other Review of Systems - Review Of Systems Constitutional: Reports: No symptoms Eyes: Reports: No symptoms Ears, Nose, Mouth, Throat: Reports: No symptoms Respiratory: Reports: No symptoms Cardiac: Reports: No symptoms GI: Reports: No symptoms : Reports: No symptoms Musculoskeletal: Reports: No symptoms Skin: Reports: No symptoms Neurological: Reports: Anxiety Endocrine: Reports: No symptoms Hematologic/Lymphatic: Reports: No symptoms All Other Systems: Reviewed and Negative Past Medical History - Past Medical History Previously Healthy: Yes Endocrine: Reports: None Cardiovascular: Reports: None, Hypertension, Other (CHEST HURTS EVERY DAY.) Respiratory: Reports: None Hematological: Reports: None Gastrointestinal: Reports: None Genitourinary: Reports: None, Other ( induced HTN treated for 6 months) Neuro/Psych: Reports: Anxiety, Depression Musculoskeletal: Reports: None Cancer: Reports: None Last Menstrual Period: last week Other Pertinent Past Medical History: HTN DEPR ANX ANXIOUS . - Surgical History General Surgical History: Reports: Appendectomy, Orthopedic (right arm surgery) , Unknown - Family History Family History: Reports: Unknown - Social History Smoking Status: Current every day smoker, Light tobacco smoker Hx Substance Use: No Alcohol Screening: Occasionally Lives: With family - Immunizations Tetanus Shot up to Date: Yes Physical Exam - Physical Exam Appearance: Well-appearing, No pain distress, Well-nourished Eyes: FIONA, EOMI, Conjunctiva clear ENT: Ears normal Neck: Supple Respiratory: Airway patent, Breath sounds clear, Breath sounds equal, Respirations nonlabored Cardiovascular: RRR GI/: Soft, Nontender, No masses, Bowel sounds normal, No Organomegaly Musculoskeletal: Normal strength, ROM intact, No edema, No calf tenderness Skin: Warm, Dry, Normal color Neurological: Alert, Oriented Psychiatric: Affect appropriate, Mood appropriate, Anxious Critical Care Note - Critical Care Note Total Time (mins): 0 Course - Course Orders, Labs, Meds: Orders Category Date Time Status 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] .ONCE EMERGENCY 07/22/17 05:18 Active Lorazepam Inj [Ativan] MEDS 07/22/17 05:18 Discontinued 2 mg IM ONCE STA Medications Discontinued Medications Generic Name Dose Route Start Last Admin Trade Name Freq PRN Reason Stop Dose Admin Lorazepam 2 mg 07/22/17 05:18 07/22/17 05:53 Ativan IM 07/22/17 05:19 2 mg ONCE STA Administration Vital Signs: Temp Pulse Resp BP Pulse Ox 07/22/17 06:40 85 20 150/92 H 98 07/22/17 05:54 104 H 20 169/108 H 07/22/17 04:52 98.3 F 124 H 20 153/124 H 98 Departure - Departure Time of Disposition: 06:44 Disposition: HOME SELF-CARE Discharge Problem: Panic attack as reaction to stress Instructions: Panic Attack (ED) Condition: Good Pt referred to PMD for follow-up: Yes Additional Instructions: take beta wm twice daily-- Allergies/Adverse Reactions: Allergies morphine Adverse Reaction (Verified 07/22/17 05:03) Chest Tightness Home Medications: Ambulatory Orders Metoprolol Tartrate [Lopressor] 25 mg PO DAILY 11/30/16 Lorazepam [Ativan] 0.25 mg PO DAILY PRN 12/15/16 Pantoprazole Sodium [Protonix] 40 mg PO DAILY 12/15/16 Paroxetine HCl [Paxil] 20 mg PO DAILY 07/22/17 Disposition Discussed With: Patient, Family
[2017-07-22 06:41] VITALS: BP 150/92
== END 2017-07-22 07:20 | disposition home or self-care (01) ==
LOC: ED 04:36
DX: F43.0 Acute stress reaction (principal); I10 Essential (primary) hypertension; F17.210 Nicotine dependence, cigarettes, uncomplicated
CPT/HCPCS: 96372; 99283

== ENCOUNTER 2017-12-11 22:57 | Emergency (ER) | payer OTHER ==
[2017-12-11 23:11] VITALS: TEMP 99.2; BMI 32.8
[2017-12-11] MEDS ORDERED: ATIVAN IM STA (23:27)
--- NOTE | 2017-12-11 23:28 | ED.PDOC ---
General ED Provider: Dr. JONATHAN JACKSON Chief Complaint: Behavioral Complaint Stated Complaint: Feels like having panic attack,. Bp been high, had couple drinks early today. Time Seen by Physician: 23:26 Mode of Arrival: Walk-In Information Source: Patient Primary Care Provider: MARGARITO LEONE Nursing and Triage Documentation Reviewed and Agree: Yes Reviewed sepsis parameters & appropriate labs ordered?: No System Inflammatory Response Syndrome: Not Applicable Sepsis Protocol: For patient's 13 years and over: Temp is 96.8 and below OR 101 and greater Pulse >90 BPM Resp >20/minute Acutely Altered Mental Status Are patient's symptoms suggestive of a new infection, such as: -Pneumonia -Skin, Soft Tissue -Endocarditis -UTI -Bone, Joint Infection -Implantable Device -Acute Abdominal Infection -Wound Infection -Meningitis -Blood Stream Catheter Infection -Unknown Psychological Complaint Exam - Psychiatric Complaint/Exam Patient Complains Of: Present: Other (anxiety) Symptoms Are: Still present Timing: Constant Episodes Lasting: Hours Initial Severity: Moderate Current Severity: Moderate Character: Present: Anxious Aggravating: Reports: None Associated Signs And Symptoms: Denies: Hostile, Confused, Hallucinating, Paranoid behavior, Sleep disturbance, Appetite change Related History: Denies: Suicidal thoughts, Suicidal plan, Suicidal gestures, Homicidal thoughts, Homicidal plan, Homicidal gestures, Prior attempts, Recent stressors, Drug ingestion Completed Suicide Risk Factors: None Patient In Custody Of Police: No Social Withdrawal Present: No Social Isolation Present: No Prior Suicide Attempt: No Injury From Prior Suicide Attempt: No Related Surgical History: Reports: None Patient Uncooperative For Exam: No Mood: Present: Anxious Appearance: Present: Clean Thought Process: Present: Logical Insight: Present: Good Memory: Intact Judgement: Normal Danger To Others: No Differential Diagnoses: Anxiety Review of Systems - Review Of Systems Constitutional: Reports: No symptoms Eyes: Reports: No symptoms Ears, Nose, Mouth, Throat: Reports: No symptoms Respiratory: Reports: No symptoms Cardiac: Reports: No symptoms GI: Reports: No symptoms : Reports: No symptoms Musculoskeletal: Reports: No symptoms Skin: Reports: No symptoms Neurological: Reports: Anxiety Endocrine: Reports: No symptoms Hematologic/Lymphatic: Reports: No symptoms All Other Systems: Reviewed and Negative Past Medical History - Past Medical History Previously Healthy: Yes Endocrine: Reports: None Cardiovascular: Reports: None, Hypertension, Other (CHEST HURTS EVERY DAY.) Respiratory: Reports: None Hematological: Reports: None Gastrointestinal: Reports: None Genitourinary: Reports: None, Other ( induced HTN treated for 6 months) Neuro/Psych: Reports: Anxiety, Depression Musculoskeletal: Reports: None Cancer: Reports: None Last Menstrual Period: 2 WEEKS AGO Other Pertinent Past Medical History: HTN DEPR ANX ANXIOUS . - Surgical History General Surgical History: Reports: Appendectomy, Orthopedic (right arm surgery) , Unknown - Family History Family History: Reports: Unknown - Social History Smoking Status: Current every day smoker, Light tobacco smoker Smoking Cessation Counseling Time: > 3 min - 10 min Hx Substance Use: No Alcohol Screening: Occasionally - Immunizations Tetanus Shot up to Date: Yes Physical Exam - Physical Exam Appearance: Well-appearing, No pain distress, Well-nourished Eyes: FIONA, EOMI, Conjunctiva clear ENT: Ears normal, Nose normal, Oropharynx normal Respiratory: Airway patent, Breath sounds clear, Breath sounds equal, Respirations nonlabored Cardiovascular: RRR, Pulses normal, No rub, No murmur GI/: Soft, Nontender, No masses, Bowel sounds normal, No Organomegaly Musculoskeletal: Normal strength, ROM intact, No edema, No calf tenderness Skin: Warm, Dry, Normal color Neurological: Sensation intact, Motor intact, Reflexes intact, Cranial nerves intact, Alert, Oriented Psychiatric: Affect appropriate, Mood appropriate Critical Care Note - Critical Care Note Total Time (mins): 30 Course - Course Orders, Labs, Meds: Orders Category Date Time Status Lorazepam [Ativan] MEDS 12/11/17 23:27 Stat 1 mg IM ONCE STA Medications Discontinued Medications Generic Name Dose Route Start Last Admin Trade Name Jorge PRN Reason Stop Dose Admin Lorazepam 1 mg 12/11/17 23:27 Ativan IM 12/11/17 23:28 ONCE STA Vital Signs: Temp Pulse Resp BP Pulse Ox 12/11/17 22:58 99.2 F 128 H 24 155/111 H 98 Departure - Departure Time of Disposition: 23:29 Disposition: HOME SELF-CARE Discharge Problem: Panic attack Instructions: Anxiety (ED) Condition: Stable Pt referred to PMD for follow-up: Yes IPMP verified?: No Additional Instructions: Increase Hydration Continue taking Home medications Allergies/Adverse Reactions: Allergies morphine Adverse Reaction (Verified 12/11/17 23:05) Chest Tightness Home Medications: Ambulatory Orders Metoprolol Tartrate [Lopressor] 25 mg PO BID 11/30/16 Lorazepam [Ativan] 0.5 mg PO DAILY 12/15/16 Pantoprazole Sodium [Protonix] 40 mg PO DAILY 12/15/16 Paroxetine HCl [Paxil] 20 mg PO DAILY 07/22/17 Disposition Discussed With: Patient
[2017-12-12 03:09] VITALS: BP 98/61
== END 2017-12-12 03:06 | disposition home or self-care (01) ==
LOC: ED 22:57
DX: F41.0 Panic disorder [episodic paroxysmal anxiety] (principal); I10 Essential (primary) hypertension; F17.210 Nicotine dependence, cigarettes, uncomplicated
CPT/HCPCS: 96372; 99283

== ENCOUNTER 2018-01-01 23:24 | Emergency (ER) ==
[2018-01-01 23:35] VITALS: BP 145/101; TEMP 98.3; BMI 32.9
--- NOTE | 2018-01-02 00:59 | CT ---
EXAM: CT scan brain without contrast HISTORY: Trauma COMPARISON: None. FINDINGS: Contiguous axial images obtained from the skull base to the convexities without contrast u tilizing 5 meters collimation. Sagittal and coronal reconstructions were imaged and reviewed. The v entricles and CSF spaces are within normal limits. There are no acute intracranial findings. The vi sualized paranasal sinuses and mastoid air cells are clear. The calvarium is intact. IMPRESSION: No acute intracranial findings
--- NOTE | 2018-01-02 01:00 | CT ---
EXAM: CT scan cervical spine HISTORY: Injury COMPARISON: None. FINDINGS: Contiguous axial images obtained through the cervical spine utilizing 2-mm collimation. S agittal and coronal reconstructions were imaged and reviewed.. The vertebral bodies are normal in he ight and alignment. The facet joints intact. There is loss of normal cervical lordosis suggesting p araspinal muscle spasm.. The central canal and foramen are patent throughout. IMPRESSION: Loss normal cervical lordosis suggesting paraspinal muscle spasm. No acute findings
--- NOTE | 2018-01-02 01:20 | ED.PDOC ---
General ED Provider: Dr. MARGARITO LEONE-ER Chief Complaint: Fall Stated Complaint: i fell Time Seen by Physician: 23:35 Mode of Arrival: Walk-In Information Source: Patient, Assisted Living Primary Care Provider: MARGARITO LEONE Nursing and Triage Documentation Reviewed and Agree: Yes Reviewed sepsis parameters & appropriate labs ordered?: Yes System Inflammatory Response Syndrome: Not Applicable Sepsis Protocol: For patient's 13 years and over: Temp is 96.8 and below OR 101 and greater Pulse >90 BPM Resp >20/minute Acutely Altered Mental Status Are patient's symptoms suggestive of a new infection, such as: -Pneumonia -Skin, Soft Tissue -Endocarditis -UTI -Bone, Joint Infection -Implantable Device -Acute Abdominal Infection -Wound Infection -Meningitis -Blood Stream Catheter Infection -Unknown Trauma/Injury Complaint Exam - Head Injury Complaint/Exam Location of Pain: Reports: Scalp Mechanism of Injury: Reports: Trauma Onset/Duration: one hour Symptoms Are: Still present Initial Severity: Mild Current Severity: Mild Character: Reports: Dull Aggravating: Reports: None Alleviating: Reports: None Associated Signs and Symptoms: Denies: Confusion, Memory loss, Seizure, Epistaxis, Dental malocclusion, Neck pain, Nausea, Vomiting Loss of Consciousness: None SDH Risk Factors: Present: None Cervical Spine Injury Risk Factors: Present: None Head Injury Findings: Present: Normal findings Glascow Coma Scale (see protocol): 15 Focal Weakness: Present: None Focal Sensory Loss: Present: None Gait: Normal Gag Reflex Present: Yes Finger to Nose: Normal Rhomberg Test Positive: No Babinski Sign: Negative Right Heel to Toe Normal: Yes Differential Diagnoses: Sprain, Strain Review of Systems - Review Of Systems Constitutional: Reports: No symptoms Eyes: Reports: No symptoms Ears, Nose, Mouth, Throat: Reports: No symptoms Respiratory: Reports: No symptoms Cardiac: Reports: No symptoms GI: Reports: No symptoms : Reports: Hematuria Musculoskeletal: Reports: No symptoms Skin: Reports: No symptoms Neurological: Reports: No symptoms Endocrine: Reports: No symptoms Hematologic/Lymphatic: Reports: No symptoms All Other Systems: Reviewed and Negative Past Medical History - Past Medical History Previously Healthy: Yes Endocrine: Reports: None Cardiovascular: Reports: None, Hypertension, Other (CHEST HURTS EVERY DAY.) Respiratory: Reports: None Hematological: Reports: None Gastrointestinal: Reports: None Genitourinary: Reports: None, Other ( induced HTN treated for 6 months) Neuro/Psych: Reports: Anxiety, Depression Musculoskeletal: Reports: None Cancer: Reports: None Last Menstrual Period: 8 days ago Other Pertinent Past Medical History: HTN DEPR ANX ANXIOUS . - Surgical History General Surgical History: Reports: Appendectomy, Orthopedic (right arm surgery) , Unknown - Family History Family History: Reports: Unknown - Social History Smoking Status: Current every day smoker, Light tobacco smoker Hx Substance Use: No Alcohol Screening: Heavy - Immunizations Tetanus Shot up to Date: Yes (6 years ago) Physical Exam - Physical Exam Appearance: Well-appearing, No pain distress, Well-nourished Eyes: FIONA, EOMI, Conjunctiva clear ENT: Ears normal Neck: Supple Respiratory: Airway patent Cardiovascular: Tachycardia GI/: Soft, Nontender, No masses, Bowel sounds normal, No Organomegaly Musculoskeletal: Normal strength, ROM intact, No edema, No calf tenderness Skin: Warm, Dry, Normal color Neurological: Sensation intact, Motor intact, Reflexes intact, Cranial nerves intact, Alert, Oriented Psychiatric: Affect appropriate, Mood appropriate Interpretation - Radiology Interpretation Radiology Interpretation By: Radiologist Radiology Results: Negative Exam Interpreted: CT Scan Procedures - Laceration/Wound Repair No standard instances Wound Description: Linear Wound Length (cm): 1.5cm Wound Prep: Hibiclens Wound Repaired With: Dermabond Layer Closure?: No Critical Care Note - Critical Care Note Total Time (mins): 0 Course - Course Orders, Labs, Meds: Lab Review 01/01/18 01/01/18 23:45 23:45 Serum , Qual Negative Plasma/Serum Alcohol 326.0 H Orders Category Date Time Status ETOH LEVEL [BLOOD ALCOHOL] Stat LAB 01/01/18 23:45 Completed SERUM Stat LAB 01/01/18 23:[address] CERVICAL SPINE W/O CONTRAST Stat RADS 01/01/18 23:[address] HEAD W/O CONTRAST Stat RADS 01/01/18 23:28 Completed Vital Signs: Temp Pulse Resp BP Pulse Ox 01/01/18 23:24 98.3 F 113 H 20 145/101 H 97 Departure - Departure Time of Disposition: 01:20 Disposition: HOME SELF-CARE Discharge Problem: Falls Laceration of scalp Qualifiers: Encounter type: initial encounter Qualified Code(s): S01.01XA - Laceration without foreign body of scalp, initial encounter Instructions: Laceration (ED), Skin Adhesive Care (ED) Condition: Good Pt referred to PMD for follow-up: Yes IPMP verified?: No Additional Instructions: keep clean and dry Allergies/Adverse Reactions: Allergies morphine Adverse Reaction (Verified 12/11/17 23:05) Chest Tightness Home Medications: Ambulatory Orders Metoprolol Tartrate [Lopressor] 25 mg PO BID 11/30/16 Lorazepam [Ativan] 0.5 mg PO DAILY 12/15/16 Pantoprazole Sodium [Protonix] 40 mg PO DAILY 12/15/16 Paroxetine HCl [Paxil] 20 mg PO DAILY 07/22/17 Disposition Discussed With: Patient, Family
[2018-01-28 20:31] VITALS: BMI 34.2
== END 2018-01-02 01:27 | disposition home or self-care (01) ==
LOC: ED 23:24
DX: S01.01XA Laceration without foreign body of scalp, initial encounter (principal); W19.XXXA Unspecified fall, initial encounter; F17.210 Nicotine dependence, cigarettes, uncomplicated
CPT/HCPCS: 36415; 80307; 84703; 99283

== ENCOUNTER 2018-05-14 20:21 | Emergency (ER) ==
[2018-05-14 20:29] VITALS: TEMP 99.2; BMI 32.9
[2018-05-14] MEDS ORDERED: TORADOL IM STA (20:36)
--- NOTE | 2018-05-14 20:40 | ED.PDOC ---
General ED Provider: Dr. MARGARITO LEONE-ER Chief Complaint: Tooth Problem Stated Complaint: aditya got an aBscessed tooth--waiting to get into dentist Time Seen by Physician: 20:37 Mode of Arrival: Walk-In Information Source: Patient Exam Limitations: No limitations Primary Care Provider: MARGARITO LEONE Nursing and Triage Documentation Reviewed and Agree: Yes Does patient meet sepsis criteria?: No System Inflammatory Response Syndrome: Not Applicable Sepsis Protocol: For patient's 13 years and over: Temp is 96.8 and below OR 101 and greater Pulse >90 BPM Resp >20/minute Acutely Altered Mental Status Are patient's symptoms suggestive of a new infection, such as: -Pneumonia -Skin, Soft Tissue -Endocarditis -UTI -Bone, Joint Infection -Implantable Device -Acute Abdominal Infection -Wound Infection -Meningitis -Blood Stream Catheter Infection -Unknown EENT Complaint Exam - Dental/Oral Complaint/Exam Mechanism of Injury: No known trauma Onset/Duration: 3 days Symptoms Are: Still present Timing: Constant Initial Severity: Mild Current Severity: Moderate Location: right premolar Character: Reports: Dull, Aching, Throbbing Aggravating: Reports: Heat, Cold, Chewing Associated Signs and Symptoms: Reports: Swelling, Discharge Tooth Findings: Present: Percussion tenderness, Gross decay, Gross caries, Dental fracture Cervical Lymphadenopathy Present: No Facial Swelling Present: No Bleeding Present: No Oropharynx Findings: Absent: Clots, Active bleeding Septal Hematoma: No Foreign Body Present: No Dysphagia Present: No Drooling Present: No Asymmetrical Tonsillar Swelling Present: No Uvula Midline: Yes Yesenia-tonsillar Fluctuence: No Trismus Present: No Palatal Petechiae Present: No Scarlatinaform Rash Present: No Differential Diagnoses: Dental Abcess Review of Systems - Review Of Systems Constitutional: Reports: No symptoms Eyes: Reports: No symptoms Ears, Nose, Mouth, Throat: Reports: Mouth pain, Mouth swelling Respiratory: Reports: No symptoms Cardiac: Reports: No symptoms GI: Reports: No symptoms : Reports: No symptoms Musculoskeletal: Reports: No symptoms Skin: Reports: No symptoms Neurological: Reports: No symptoms Endocrine: Reports: No symptoms Hematologic/Lymphatic: Reports: No symptoms All Other Systems: Reviewed and Negative Past Medical History - Past Medical History Previously Healthy: Yes Endocrine: Reports: None Cardiovascular: Reports: None, Hypertension, Other (CHEST HURTS EVERY DAY.) Respiratory: Reports: None Hematological: Reports: None Gastrointestinal: Reports: None Genitourinary: Reports: None, Other ( induced HTN treated for 6 months) Neuro/Psych: Reports: Anxiety, Depression Musculoskeletal: Reports: None Cancer: Reports: None Last Menstrual Period: first week sept Other Pertinent Past Medical History: HTN DEPR ANX ANXIOUS . - Surgical History General Surgical History: Reports: Appendectomy, Orthopedic (right arm surgery) , Unknown - Family History Family History: Reports: Unknown - Social History Smoking Status: Current every day smoker, Light tobacco smoker Hx Substance Use: No Alcohol Screening: Heavy - Immunizations Tetanus Shot up to Date: Yes Physical Exam - Physical Exam Appearance: Well-appearing Pain Distress: Moderate Eyes: FIONA, EOMI, Conjunctiva clear ENT: Erythema Neck: Supple Respiratory: Airway patent, Breath sounds clear, Breath sounds equal, Respirations nonlabored Cardiovascular: RRR, Pulses normal, No rub, No murmur GI/: Soft, Nontender, No masses, Bowel sounds normal, No Organomegaly Musculoskeletal: Normal strength, ROM intact, No edema, No calf tenderness Skin: Warm, Dry, Normal color Neurological: Sensation intact, Motor intact, Reflexes intact, Cranial nerves intact, Alert, Oriented Psychiatric: Affect appropriate, Mood appropriate Critical Care Note - Critical Care Note Total Time (mins): 0 Course - Course Orders, Labs, Meds: Orders Category Date Time Status Ketorolac Tromethamine [Toradol] MEDS 05/14/18 20:36 Stat 60 mg IM ONCE STA Medications Generic Name Dose Route Start Last Admin Trade Name Freq PRN Reason Stop Dose Admin Ketorolac Tromethamine 60 mg 05/14/18 20:36 Toradol IM 05/14/18 20:37 ONCE STA Vital Signs: Temp Pulse Resp BP Pulse Ox 05/14/18 20:22 99.2 F 97 H 20 172/132 H 98 Departure - Departure Time of Disposition: 20:41 Disposition: HOME SELF-CARE Discharge Problem: Dental abscess Instructions: Dental Abscess (ED) Condition: Good Pt referred to PMD for follow-up: No IPMP verified?: No Additional Instructions: clindamycin 300mg tid x 7 days#21--f/u with dentist neisha Allergies/Adverse Reactions: Allergies morphine Adverse Reaction (Verified 05/14/18 20:32) Chest Tightness Home Medications: Ambulatory Orders Lorazepam [Ativan] 0.5 mg PO DAILY 12/15/16 Pantoprazole Sodium [Protonix] 40 mg PO DAILY 12/15/16 Paroxetine HCl [Paxil] 20 mg PO DAILY 07/22/17 Clonidine HCl [Catapres] 0.1 mg PO BID 05/14/18 Labetalol HCl 100 mg PO BID 05/14/18 Disposition Discussed With: Patient, Family
[2018-05-14 21:34] VITALS: BP 150/110
== END 2018-05-14 21:36 | disposition home or self-care (01) ==
LOC: ED 20:21
DX: K08.89 Other specified disorders of teeth and supporting structures (principal); K02.9 Dental caries, unspecified; K04.7 Periapical abscess without sinus
CPT/HCPCS: 96372; 99283

== ENCOUNTER 2018-05-16 19:30 | Emergency (ER) ==
[2018-05-16 19:30] VITALS: BMI 34.2
[2018-05-16 19:37] VITALS: TEMP 98.4
[2018-05-16] MEDS ORDERED: ATIVAN PO STA (20:24)
[2018-05-16 20:54] VITALS: BP 140/96
--- NOTE | 2018-05-16 21:06 | ED.PDOC ---
General ED Provider: Dr. HARSHAL ERAZO Chief Complaint: Hypertension Stated Complaint: Patient states that she had a mild headache then noticed that her blood pressure was elevated. Took her clonidine in the waiting room. Admits to some anxiety. Time Seen by Physician: 21:03 Mode of Arrival: Walk-In Information Source: Patient, Family Primary Care Provider: MARGARITO LEONE Nursing and Triage Documentation Reviewed and Agree: Yes Does patient meet sepsis criteria?: No System Inflammatory Response Syndrome: Not Applicable Sepsis Protocol: For patient's 13 years and over: Temp is 96.8 and below OR 101 and greater Pulse >90 BPM Resp >20/minute Acutely Altered Mental Status Are patient's symptoms suggestive of a new infection, such as: -Pneumonia -Skin, Soft Tissue -Endocarditis -UTI -Bone, Joint Infection -Implantable Device -Acute Abdominal Infection -Wound Infection -Meningitis -Blood Stream Catheter Infection -Unknown Review of Systems - Review Of Systems Constitutional: Reports: No symptoms Eyes: Reports: No symptoms Ears, Nose, Mouth, Throat: Reports: No symptoms Respiratory: Reports: No symptoms Cardiac: Reports: No symptoms GI: Reports: No symptoms : Reports: No symptoms Musculoskeletal: Reports: No symptoms Skin: Reports: No symptoms Neurological: Reports: Anxiety, Headache Endocrine: Reports: No symptoms Hematologic/Lymphatic: Reports: No symptoms All Other Systems: Reviewed and Negative Past Medical History - Past Medical History Previously Healthy: Yes Endocrine: Reports: None Cardiovascular: Reports: None, Hypertension, Other (CHEST HURTS EVERY DAY.) Respiratory: Reports: None Hematological: Reports: None Gastrointestinal: Reports: None Genitourinary: Reports: None, Other ( induced HTN treated for 6 months) Neuro/Psych: Reports: Anxiety, Depression Musculoskeletal: Reports: None Cancer: Reports: None Last Menstrual Period: 04/18/18 Other Pertinent Past Medical History: HTN DEPR ANX ANXIOUS . - Surgical History General Surgical History: Reports: Appendectomy, Orthopedic (right arm surgery) , Unknown - Family History Family History: Reports: Unknown - Social History Smoking Status: Current every day smoker, Light tobacco smoker Hx Substance Use: No Alcohol Screening: Heavy - Immunizations Tetanus Shot up to Date: Yes Physical Exam - Physical Exam Appearance: Obese Eyes: FIONA, EOMI, Conjunctiva clear ENT: Ears normal, Nose normal, Oropharynx normal Respiratory: Airway patent, Breath sounds clear, Breath sounds equal, Respirations nonlabored Cardiovascular: RRR, Pulses normal, No rub, No murmur GI/: Soft, Nontender, No masses, Bowel sounds normal, No Organomegaly Musculoskeletal: Normal strength, ROM intact, No edema, No calf tenderness Skin: Warm, Dry, Normal color Neurological: Sensation intact, Motor intact, Reflexes intact, Cranial nerves intact, Alert, Oriented Psychiatric: Anxious Re-Evaluation - Re-Evaluation Time of Re-Evaluation: 21:04 Status: Improved Vital Signs Stable: Yes Critical Care Note - Critical Care Note Total Time (mins): 0 Course - Course Orders, Labs, Meds: Orders Category Date Time Status Lorazepam [Ativan] MEDS 05/16/18 20:24 Discontinued 0.5 mg PO ONCE STA Medications Discontinued Medications Generic Name Dose Route Start Last Admin Trade Name Jjq PRN Reason Stop Dose Admin Lorazepam 0.5 mg 05/16/18 20:24 05/16/18 20:34 Ativan PO 05/16/18 20:25 0.5 mg ONCE STA Administration Vital Signs: Temp Pulse Resp BP Pulse Ox 05/16/18 20:54 140/96 H 05/16/18 20:07 162/109 H 05/16/18 19:30 98.4 F 92 H 20 152/97 H 98 Departure - Departure Time of Disposition: 21:03 Disposition: HOME SELF-CARE Discharge Problem: Anxiety Hypertension Qualifiers: Hypertension type: essential hypertension Qualified Code(s): I10 - Essential ( primary) hypertension Instructions: Hypertension (ED), Anxiety (ED) Condition: Stable Pt referred to PMD for follow-up: Yes IPMP verified?: No Additional Instructions: Continue home medications Follow up with PCP in 1-2 days Allergies/Adverse Reactions: Allergies morphine Adverse Reaction (Verified 05/16/18 19:37) Chest Tightness Home Medications: Ambulatory Orders Lorazepam [Ativan] 0.5 mg PO DAILY 12/15/16 Pantoprazole Sodium [Protonix] 40 mg PO DAILY 12/15/16 Paroxetine HCl [Paxil] 40 mg PO DAILY 07/22/17 Clonidine HCl [Catapres] 0.1 mg PO TID 05/14/18 Labetalol HCl 100 mg PO BID 05/14/18 Clindamycin HCl 300 mg PO TID 05/16/18 Hydrochlorothiazide 12.5 mg PO DAILY 05/16/18 Disposition Discussed With: Patient, Family
== END 2018-05-16 21:07 | disposition home or self-care (01) ==
LOC: ED 19:30
DX: F41.9 Anxiety disorder, unspecified (principal); I10 Essential (primary) hypertension; R51 Headache; Z79.899 Other long term (current) drug therapy; F17.210 Nicotine dependence, cigarettes, uncomplicated
CPT/HCPCS: 99283

== ENCOUNTER 2018-06-18 18:34 | Emergency (ER) ==
[2018-06-18 18:38] VITALS: TEMP 99.8; BMI 34.7
--- NOTE | 2018-06-18 19:51 | ED.PDOC ---
General ED Provider: Dr. HARSHAL ERAZO Chief Complaint: Hypertension Stated Complaint: states she flet anxious then checked her blood pressure and noted it was elevated. with diastolic >100 she took her Anxiety medication then came to the ER. States she is feeling better now. Time Seen by Physician: 19:49 Mode of Arrival: Walk-In Information Source: Patient Primary Care Provider: MARGARITO LEONE Nursing and Triage Documentation Reviewed and Agree: Yes Does patient meet sepsis criteria?: No If yes, has appropriate treatment been initiated?: No System Inflammatory Response Syndrome: Not Applicable Sepsis Protocol: For patient's 13 years and over: Temp is 96.8 and below OR 101 and greater Pulse >90 BPM Resp >20/minute Acutely Altered Mental Status Are patient's symptoms suggestive of a new infection, such as: -Pneumonia -Skin, Soft Tissue -Endocarditis -UTI -Bone, Joint Infection -Implantable Device -Acute Abdominal Infection -Wound Infection -Meningitis -Blood Stream Catheter Infection -Unknown Psychological Complaint Exam - Psychiatric Complaint/Exam Patient Complains Of: Present: Other (Anxiety ) Onset/Duration: 3 hours Symptoms Are: Still present (but better ) Timing: Constant Initial Severity: Severe Current Severity: Mild Character: Present: Anxious Aggravating: Reports: None (except noticed blood pressure was elevated. ) Associated Signs And Symptoms: Denies: Hostile, Confused, Hallucinating, Paranoid behavior, Sleep disturbance, Appetite change Related History: Denies: Suicidal thoughts, Suicidal plan, Suicidal gestures Patient Accompanied By: Family Patient In Custody Of Police: No Social Withdrawal Present: No Social Isolation Present: No Prior Suicide Attempt: No Injury From Prior Suicide Attempt: No Mood: Present: Anxious Appearance: Present: Clean Thought Process: Present: Logical Insight: Present: Good Memory: Intact Judgement: Normal Danger To Others: No Differential Diagnoses: Anxiety Review of Systems - Review Of Systems Constitutional: Reports: No symptoms Eyes: Reports: No symptoms Ears, Nose, Mouth, Throat: Reports: No symptoms Respiratory: Reports: No symptoms Cardiac: Reports: No symptoms GI: Reports: No symptoms : Reports: No symptoms Musculoskeletal: Reports: No symptoms Skin: Reports: No symptoms Neurological: Reports: Anxiety (now better ) Endocrine: Reports: No symptoms Hematologic/Lymphatic: Reports: No symptoms All Other Systems: Reviewed and Negative Past Medical History - Past Medical History Previously Healthy: Yes Endocrine: Reports: None Cardiovascular: Reports: Hypertension, Other (CHEST HURTS EVERY DAY.) Respiratory: Reports: None Hematological: Reports: None Gastrointestinal: Reports: None Genitourinary: Reports: None, Other ( induced HTN treated for 6 months) Neuro/Psych: Reports: Anxiety, Depression Musculoskeletal: Reports: None Cancer: Reports: None Last Menstrual Period: 04/18/18 Other Pertinent Past Medical History: HTN DEPR ANX ANXIOUS . - Surgical History General Surgical History: Reports: Appendectomy, Orthopedic (right arm surgery) , Unknown - Family History Family History: Reports: Unknown - Social History Smoking Status: Current every day smoker, Light tobacco smoker Hx Substance Use: No Alcohol Screening: Heavy - Immunizations Tetanus Shot up to Date: Yes Physical Exam - Physical Exam Appearance: Ill-appearing, Obese Ill-appearing: Mild Eyes: FIONA, EOMI, Conjunctiva clear ENT: Nose normal Neck: Supple Respiratory: Airway patent, Breath sounds clear, Breath sounds equal, Respirations nonlabored Cardiovascular: RRR, Pulses normal, No rub, No murmur GI/: Soft Musculoskeletal: Normal strength, ROM intact, No edema Skin: Warm, Dry, Normal color Neurological: Sensation intact, Motor intact, Alert, Oriented Psychiatric: Anxious Critical Care Note - Critical Care Note Total Time (mins): 0 Course - Course Vital Signs: Temp Pulse Resp BP Pulse Ox 06/18/18 20:14 142/83 H 06/18/18 19:39 153/101 H 06/18/18 18:34 99.8 F H 103 H 18 162/113 H 98 Departure - Departure Time of Disposition: 20:20 Disposition: HOME SELF-CARE Discharge Problem: Hypertension, Anxiety Instructions: Hypertension (ED), Anxiety (ED) Condition: Stable Pt referred to PMD for follow-up: Yes IPMP verified?: No Additional Instructions: Follow up with PCP in 2 days Continue home medications. Practice relaxation methods for anxiety Allergies/Adverse Reactions: Allergies morphine Adverse Reaction (Verified 06/18/18 18:36) Chest Tightness Home Medications: Ambulatory Orders Lorazepam [Ativan] 0.5 mg PO DAILY 12/15/16 Pantoprazole Sodium [Protonix] 40 mg PO DAILY 12/15/16 Paroxetine HCl [Paxil] 40 mg PO DAILY 07/22/17 Clonidine HCl [Catapres] 0.1 mg PO TID 05/14/18 Labetalol HCl 100 mg PO BID 05/14/18 Hydrochlorothiazide 12.5 mg PO DAILY 05/16/18 Disposition Discussed With: Patient, Family Discharge Problem: Hypertension Qualifiers: Hypertension type: essential hypertension Qualified Code(s): I10 - Essential ( primary) hypertension
[2018-06-18 20:14] VITALS: BP 142/83
== END 2018-06-18 20:25 | disposition home or self-care (01) ==
LOC: ED 18:34
DX: I10 Essential (primary) hypertension (principal); F41.9 Anxiety disorder, unspecified; F17.210 Nicotine dependence, cigarettes, uncomplicated
CPT/HCPCS: 99282

== ENCOUNTER 2018-09-02 20:19 | Emergency (ER) ==
[2018-09-02 20:36] VITALS: TEMP 99.1; BMI 34.0
[2018-09-02] MEDS ORDERED: VASOTEC IV IVP STA (20:40)
[2018-09-02 21:32] VITALS: BP 148/97
--- NOTE | 2018-09-02 21:44 | ED.PDOC ---
General ED Provider: Dr. HARSHAL ERAZO Chief Complaint: Hypertension Stated Complaint: Patients blood pressure has been elevated and PCP has been trying to manage. Today she was told to Double the Labetolol and take Clonidine 3 tabs three times a day instead of once table three times a day. She states that after she took her medications she felt dizzy and slept but when she woke up she noticed that her blood pressure was high and had a headache then came to the ER. Time Seen by Physician: 20:40 Mode of Arrival: Walk-In Information Source: Patient, Family Exam Limitations: No limitations Primary Care Provider: MARGARITO LEONE Nursing and Triage Documentation Reviewed and Agree: Yes Does patient meet sepsis criteria?: No System Inflammatory Response Syndrome: Not Applicable Sepsis Protocol: For patient's 13 years and over: Temp is 96.8 and below OR 101 and greater Pulse >90 BPM Resp >20/minute Acutely Altered Mental Status Are patient's symptoms suggestive of a new infection, such as: -Pneumonia -Skin, Soft Tissue -Endocarditis -UTI -Bone, Joint Infection -Implantable Device -Acute Abdominal Infection -Wound Infection -Meningitis -Blood Stream Catheter Infection -Unknown Review of Systems - Review Of Systems Constitutional: Reports: Other (fatigued ) Eyes: Reports: No symptoms Ears, Nose, Mouth, Throat: Reports: No symptoms Respiratory: Reports: No symptoms Cardiac: Reports: No symptoms GI: Reports: No symptoms : Reports: No symptoms Musculoskeletal: Reports: No symptoms Skin: Reports: No symptoms Neurological: Reports: Anxiety, Headache (mild ) Endocrine: Reports: No symptoms Hematologic/Lymphatic: Reports: No symptoms All Other Systems: Reviewed and Negative Past Medical History - Past Medical History Previously Healthy: Yes Endocrine: Reports: None Cardiovascular: Reports: Hypertension, Other (CHEST HURTS EVERY DAY.) Respiratory: Reports: None Hematological: Reports: None Gastrointestinal: Reports: None Genitourinary: Reports: Other ( induced HTN treated for 6 months) Neuro/Psych: Reports: Anxiety, Depression Musculoskeletal: Reports: None Cancer: Reports: None Last Menstrual Period: 2 weeks ago Other Pertinent Past Medical History: HTN DEPR ANX ANXIOUS . - Surgical History General Surgical History: Reports: Appendectomy, Orthopedic (right arm surgery) , Unknown - Family History Family History: Reports: Unknown - Social History Smoking Status: Current every day smoker, Light tobacco smoker Hx Substance Use: No Alcohol Screening: Occasionally - Immunizations Tetanus Shot up to Date: Yes Physical Exam - Physical Exam Appearance: Ill-appearing Ill-appearing: Moderate Pain Distress: Moderate Eyes: FIONA, EOMI, Conjunctiva clear Neck: Supple Respiratory: Airway patent, Breath sounds clear, Breath sounds equal, Respirations nonlabored Cardiovascular: RRR, Pulses normal, No rub, No murmur GI/: Soft, Nontender, No masses, Bowel sounds normal, No Organomegaly Musculoskeletal: Normal strength, ROM intact, No edema, No calf tenderness Skin: Warm, Dry, Normal color Neurological: Alert, Oriented Psychiatric: Anxious Re-Evaluation - Re-Evaluation Time of Re-Evaluation: 21:48 Status: Improved (headache almost done ) Vital Signs Stable: Yes (blood pressure 148/97) Critical Care Note - Critical Care Note Total Time (mins): 30 Course - Course Hematology/Chemistry: 09/02/18 20:53 09/02/18 20:53 Orders, Labs, Meds: Lab Review 09/02/18 09/02/18 20:53 20:53 WBC 9.67 RBC 4.20 Hgb 14.4 Hct 41.1 MCV 97.9 MCH 34.3 H MCHC 35.0 RDW Coeff of Johnathan 12.5 Plt Count 254 Immature Gran % (Auto) 0.4 Neut % (Auto) 59.0 Lymph % (Auto) 32.3 [place] % (Auto) 3.8 Eos % (Auto) 3.3 Baso % (Auto) 1.2 Immature Gran # (Auto) 0.0 Neut # (Auto) 5.7 Lymph # (Auto) 3.1 [place] # (Auto) 0.4 Eos # (Auto) 0.3 Baso # (Auto) 0.1 Sodium 135.1 Potassium 3.78 Chloride 100.3 Carbon Dioxide 26.6 Anion Gap 11.98 BUN 10.2 Creatinine 0.68 Estimated GFR (MDRD) 105.00 BUN/Creatinine Ratio 15.00 Glucose 95.2 Calcium 9.74 Total Bilirubin 0.59 AST 68.5 H ALT 79.0 H Alkaline Phosphatase 74.5 Total Creatine Kinase 121.2 CK-MB (CK-2) 1.890 CK-MB (CK-2) % 1.5500 Troponin I < 0.012 Total Protein 7.83 Albumin 4.80 Globulin 3.03 Albumin/Globulin Ratio 1.58 Orders Category Date Time Status EKG-(ED ONLY) Stat CARDIO 09/02/18 20:40 Ordered ED IV/MEDIPORT/POWERPORT .ONCE EMERGENCY 09/02/18 20:40 Active CBC W/ AUTO DIFF Stat LAB 09/02/18 20:53 Completed COMPREHENSIVE METABOLIC PANEL Stat LAB 09/02/18 20:53 Completed CREATINE KINASE Stat LAB 09/02/18 20:53 Completed TROPONIN I Stat LAB 09/02/18 20:53 Completed 0.9 % Sodium Chloride [Saline Flush] MEDS 09/02/18 20:40 Ordered 1 syr IVF PRN PRN Enalaprilat Dihydrate [Vasotec IV] MEDS 09/02/18 20:40 Discontinued 1.25 mg IVP ONCE STA Medications Generic Name Dose Route Start Last Admin Trade Name Freq PRN Reason Stop Dose Admin Sodium Chloride 1 syr 09/02/18 20:40 09/02/18 20:57 Saline Flush IVF 1 syr PRN PRN Administration To flush IV Discontinued Medications Generic Name Dose Route Start Last Admin Trade Name Freq PRN Reason Stop Dose Admin Enalaprilat 1.25 mg 09/02/18 20:40 09/02/18 20:57 Vasotec Iv IVP 09/02/18 20:41 1.25 mg ONCE STA Administration Vital Signs: Temp Pulse Resp BP Pulse Ox 09/02/18 21:31 148/97 H 09/02/18 20:23 99.1 F 94 H 20 172/133 H 98 Departure - Departure Time of Disposition: 21:59 Disposition: HOME SELF-CARE Discharge Problem: Hypertension Qualifiers: Hypertension type: essential hypertension Qualified Code(s): I10 - Essential ( primary) hypertension Instructions: Chronic Hypertension (ED) Condition: Stable Pt referred to PMD for follow-up: Yes IPMP verified?: No Additional Instructions: Call your doctor in the morning for clarification on doses of your blood pressure medication Allergies/Adverse Reactions: Allergies morphine Adverse Reaction (Verified 09/02/18 20:31) Chest Tightness Home Medications: Ambulatory Orders Lorazepam [Ativan] 0.5 mg PO DAILY 12/15/16 Pantoprazole Sodium [Protonix] 40 mg PO DAILY 12/15/16 Paroxetine HCl [Paxil] 40 mg PO DAILY 07/22/17 Clonidine HCl [Catapres] 0.3 mg PO TID 05/14/18 Labetalol HCl 200 mg PO BID 05/14/18 Hydrochlorothiazide 12.5 mg PO DAILY 05/16/18 Bupropion HCl [Wellbutrin Xl] 150 mg PO DAILY 07/16/18 Naltrexone HCl 50 mg PO DAILY 07/16/18
== END 2018-09-02 22:05 | disposition home or self-care (01) ==
LOC: ED 20:19
DX: I10 Essential (primary) hypertension (principal); R51 Headache; F17.210 Nicotine dependence, cigarettes, uncomplicated; Z79.899 Other long term (current) drug therapy
CPT/HCPCS: 36415; 80053; 82550; 82553; 84484; 85025; 93005; 93010; 96374; 96375; 99282

== ENCOUNTER 2018-10-12 18:34 | Emergency (ER) ==
[2018-10-12 18:36] VITALS: TEMP 99.1; BMI 34.5
[2018-10-12] MEDS: TRANDATE PO STA (19:09)
[2018-10-12] MEDS: CATAPRES PO STA (19:09)
[2018-10-12] MEDS: ATIVAN IVP STA ×2 (19:10→20:59)
[2018-10-12] MEDS: TRANDATE IVP STA ×2 (20:59→21:45)
--- NOTE | 2018-10-12 22:05 | ED.PDOC ---
General ED Provider: Dr. MARGARITO ROCA MD Chief Complaint: Hypertension Stated Complaint: highBP anxious Time Seen by Physician: 18:50 Mode of Arrival: Walk-In Information Source: Patient Exam Limitations: No limitations Primary Care Provider: MARGARITO LEONE Nursing and Triage Documentation Reviewed and Agree: Yes Does patient meet sepsis criteria?: No If yes, has appropriate treatment been initiated?: Yes System Inflammatory Response Syndrome: Not Applicable Sepsis Protocol: For patient's 13 years and over: Temp is 96.8 and below OR 101 and greater Pulse >90 BPM Resp >20/minute Acutely Altered Mental Status Are patient's symptoms suggestive of a new infection, such as: -Pneumonia -Skin, Soft Tissue -Endocarditis -UTI -Bone, Joint Infection -Implantable Device -Acute Abdominal Infection -Wound Infection -Meningitis -Blood Stream Catheter Infection -Unknown Review of Systems - Review Of Systems Constitutional: Reports: Other (panicky this morning) Eyes: Reports: No symptoms Ears, Nose, Mouth, Throat: Reports: No symptoms Respiratory: Reports: No symptoms Cardiac: Reports: No symptoms GI: Reports: No symptoms : Reports: No symptoms Musculoskeletal: Reports: No symptoms Skin: Reports: No symptoms Neurological: Reports: No symptoms Endocrine: Reports: No symptoms Hematologic/Lymphatic: Reports: No symptoms All Other Systems: Reviewed and Negative Past Medical History - Past Medical History Previously Healthy: Yes Endocrine: Reports: None Cardiovascular: Reports: Hypertension, Other (CHEST HURTS EVERY DAY.) Respiratory: Reports: None Hematological: Reports: None Gastrointestinal: Reports: None Genitourinary: Reports: Other ( induced HTN treated for 6 months) Neuro/Psych: Reports: Anxiety, Depression Musculoskeletal: Reports: None Cancer: Reports: None Last Menstrual Period: 1 month ago Other Pertinent Past Medical History: HTN DEPR ANX ANXIOUS . - Surgical History General Surgical History: Reports: Appendectomy, Orthopedic (right arm surgery) , Unknown - Family History Family History: Reports: Unknown - Social History Smoking Status: Current every day smoker, Light tobacco smoker Hx Substance Use: No Alcohol Screening: Occasionally Physical Exam - Physical Exam Appearance: Obese Ill-appearing: Mild Pain Distress: None Eyes: FIONA, EOMI, Conjunctiva clear ENT: Ears normal, Nose normal, Oropharynx normal Neck: Supple Respiratory: Airway patent, Breath sounds clear, Breath sounds equal, Respirations nonlabored Cardiovascular: RRR, Pulses normal, No rub, No murmur GI/: Soft, Nontender, No masses, Bowel sounds normal, No Organomegaly Musculoskeletal: Normal strength Skin: Warm, Dry, Normal color Neurological: Sensation intact, Motor intact, Reflexes intact, Cranial nerves intact, Alert, Oriented Psychiatric: Anxious Critical Care Note - Critical Care Note Total Time (mins): 0 Course - Course Hematology/Chemistry: 10/12/18 20:07 10/12/18 20:07 Orders, Labs, Meds: Lab Review 10/12/18 10/12/18 20:07 20:07 WBC 10.32 H RBC 4.15 L Hgb 13.9 Hct 41.0 MCV 98.8 MCH 33.5 H MCHC 33.9 RDW Coeff of Johnathan 12.3 Plt Count 222 Immature Gran % (Auto) 0.6 Neut % (Auto) 69.2 Lymph % (Auto) 21.4 [place] % (Auto) 5.2 Eos % (Auto) 2.5 Baso % (Auto) 1.1 Immature Gran # (Auto) 0.1 Neut # (Auto) 7.1 H Lymph # (Auto) 2.2 [place] # (Auto) 0.5 Eos # (Auto) 0.3 Baso # (Auto) 0.1 Sodium 137.5 Potassium 4.25 Chloride 98.9 Carbon Dioxide 27.7 Anion Gap 15.15 BUN 13.5 Creatinine 0.65 Estimated GFR (MDRD) 111.00 BUN/Creatinine Ratio 20.76 Glucose 103.9 Calcium 9.85 Total Bilirubin 0.42 AST 205.2 H ALT 218.1 H Alkaline Phosphatase 89.5 Total Protein 7.41 Albumin 4.57 Globulin 2.84 Albumin/Globulin Ratio 1.60 Orders Category Date Time Status EKG-(ED ONLY) Stat CARDIO 10/12/18 19:56 Completed CBC W/ AUTO DIFF Stat LAB 10/12/18 20:07 Completed CMP [COMPREHENSIVE METABOLIC PANEL] Stat LAB 10/12/18 20:07 Completed Clonidine HCl [Catapres] MEDS 10/12/18 19:01 Discontinued 0.1 mg PO ONCE STA Labetalol HCl [Trandate] MEDS 10/12/18 19:01 Discontinued 100 mg PO ONCE STA Labetalol HCl [Trandate] MEDS 10/12/18 20:53 Discontinued 20 mg IVP ONCE STA Labetalol HCl [Trandate] MEDS 10/12/18 21:39 Discontinued 20 mg IVP ONCE STA Lorazepam Inj [Ativan] MEDS 10/12/18 19:00 Discontinued 1 mg IVP ONCE STA Lorazepam Inj [Ativan] MEDS 10/12/18 20:51 Discontinued 1 mg IVP ONCE STA Medications Discontinued Medications Generic Name Dose Route Start Last Admin Trade Name Freq PRN Reason Stop Dose Admin Clonidine 0.1 mg 10/12/18 19:01 10/12/18 19:09 Catapres PO 10/12/18 19:02 0.1 mg ONCE STA Administration Labetalol HCl 100 mg 10/12/18 19:01 10/12/18 19:09 Trandate PO 10/12/18 19:02 100 mg ONCE STA Administration Labetalol HCl 20 mg 10/12/18 20:53 10/12/18 20:59 Trandate IVP 10/12/18 20:54 20 mg ONCE STA Administration Labetalol HCl 20 mg 10/12/18 21:39 10/12/18 21:45 Trandate IVP 10/12/18 21:40 20 mg ONCE STA Administration Lorazepam 1 mg 10/12/18 19:00 10/12/18 19:10 Ativan IVP 10/12/18 19:01 1 mg ONCE STA Administration Lorazepam 1 mg 10/12/18 20:51 10/12/18 20:59 Ativan IVP 10/12/18 20:52 1 mg ONCE STA Administration Vital Signs: Temp Pulse Resp BP Pulse Ox 10/12/18 22:05 75 14 152/111 H 99 10/12/18 18:34 99.1 F 98 H 20 181/134 H 98 KATHYA Risk Score KATHYA Risk Score: Risk Score Odds of by 30D 0 0.1 (0.1-0.2) 1 0.3 (0.2-0.3) 2 0.4 (0.3-0.5) 3 0.7 (0.6-0.9) 4 1.2 (1.0-1.5) 5 2.2 (1.9-2.6) 6 3.0 (2.5-3.6) 7 4.8 (3.8-6.1) Departure - Departure Time of Disposition: 22:30 Disposition: HOME SELF-CARE Discharge Problem: Hypertension Instructions: Coronary Artery Disease (DC), Chronic Hypertension (ED) Condition: Good Pt referred to PMD for follow-up: Yes IPMP verified?: No Allergies/Adverse Reactions: Allergies morphine Adverse Reaction (Verified 10/12/18 18:36) Chest Tightness Home Medications: Ambulatory Orders Lorazepam [Ativan] 0.5 mg PO DAILY 12/15/16 Pantoprazole Sodium [Protonix] 40 mg PO DAILY 12/15/16 Paroxetine HCl [Paxil] 40 mg PO DAILY 07/22/17 Clonidine HCl [Catapres] 0.1 mg PO TID 05/14/18 Labetalol HCl 200 mg PO BID 05/14/18 Hydrochlorothiazide 12.5 mg PO DAILY 05/16/18 Bupropion HCl [Wellbutrin Xl] 150 mg PO DAILY 07/16/18 Transfer Form Completed: No Disposition Discussed With: Patient, Family
[2018-10-12 22:06] VITALS: BP 152/111
== END 2018-10-12 22:30 | disposition home or self-care (01) ==
LOC: ED 18:34
DX: I10 Essential (primary) hypertension (principal); F41.9 Anxiety disorder, unspecified
CPT/HCPCS: 36415; 80053; 85025; 93005; 93010; 96374; 96375; 96376; 99283

== ENCOUNTER 2018-11-19 11:18 | Emergency (ER) ==
[2018-11-19 11:21] VITALS: BP 154/87; TEMP 100.3; BMI 34.2
[2018-11-19] MEDS ORDERED: SODIUM CHLORIDE 1,000 ML IV STA (12:36)
[2018-11-19] MEDS ORDERED: NUBAIN IVP STA (12:38)
--- NOTE | 2018-11-19 12:39 | ED.PDOC ---
General ED Provider: Dr. MARGARITO BUNN Chief Complaint: Abdominal Pain Stated Complaint: Acute abdominal pain. Onset last PM. Associated Nausea. Currently pain is constant and is 8/10 intensity Time Seen by Physician: 11:25 Mode of Arrival: Walk-In Information Source: Patient Exam Limitations: Clinical condition Primary Care Provider: MARGARITO MOSQUERA Nursing and Triage Documentation Reviewed and Agree: Yes Does patient meet sepsis criteria?: No System Inflammatory Response Syndrome: Not Applicable Sepsis Protocol: For patient's 13 years and over: Temp is 96.8 and below OR 101 and greater Pulse >90 BPM Resp >20/minute Acutely Altered Mental Status Are patient's symptoms suggestive of a new infection, such as: -Pneumonia -Skin, Soft Tissue -Endocarditis -UTI -Bone, Joint Infection -Implantable Device -Acute Abdominal Infection -Wound Infection -Meningitis -Blood Stream Catheter Infection -Unknown GI Complaint Exam - Abdominal Pain Complaint/Exam Onset: Sudden Duration: 12 hrs Symptoms Are: Still present Timing: Constant Initial Severity: Moderate Current Severity: Severe Location of Pain: RLQ, LLQ, Suprapubic Radiates To: Denies: Chest, Back, Flank, LLQ, RLQ, Inguinal Character: Reports: Cramping Aggravating: Reports: Movement Alleviating: Reports: Rest Associated Signs and Symptoms: Reports: Dysuria, Urinary frequency, Decreased urine output, Nausea. 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: Denies: Ectopic, Ovarian cyst, PID : 1 Para: 1 Hx Total # of Abortions (Spontaneous & Elective): 0 AAA Risk Factors: Reports: None Cardiac Risk Factors: Reports: None Ectopic Risk Factors: Reports: None Ovarian Torsion Risk Factors: Reports: None Surgical Obstruction Risk Factors: Reports: None Related Surgical History: Reports: None, Appendectomy Review of Systems - Review Of Systems Constitutional: Reports: No symptoms Eyes: Reports: No symptoms Ears, Nose, Mouth, Throat: Reports: No symptoms Respiratory: Reports: No symptoms Cardiac: Reports: No symptoms GI: Reports: Abdominal pain, Nausea, Poor fluid intake. Denies: Rectal bleeding , Vomiting : Reports: No symptoms, Other (Denies vaginal discharge. LMP3-4 weeks ago. Irregular periods; Denies Dyspareunia. Sexually active but infrequent) Musculoskeletal: Reports: No symptoms Skin: Reports: No symptoms Neurological: Reports: No symptoms Endocrine: Reports: No symptoms Hematologic/Lymphatic: Reports: No symptoms All Other Systems: Reviewed and Negative Past Medical History - Past Medical History Previously Healthy: Yes Endocrine: Reports: None Cardiovascular: Reports: Hypertension, Other (CHEST HURTS EVERY DAY.) Respiratory: Reports: None Hematological: Reports: None Gastrointestinal: Reports: None Genitourinary: Reports: Other ( induced HTN treated for 6 months) Neuro/Psych: Reports: Anxiety, Depression Musculoskeletal: Reports: None Cancer: Reports: None Last Menstrual Period: last month Other Pertinent Past Medical History: HTN DEPR ANX ANXIOUS . - Surgical History General Surgical History: Reports: Appendectomy, Orthopedic (right arm surgery) , Unknown - Family History Family History: Reports: Unknown - Social History Smoking Status: Current every day smoker, Light tobacco smoker Hx Substance Use: No Alcohol Screening: Occasionally Physical Exam - Physical Exam Appearance: Well-appearing, No pain distress, Well-nourished Ill-appearing: Moderate Pain Distress: Moderate Eyes: FIONA, EOMI, Conjunctiva clear ENT: Ears normal, Nose normal, Oropharynx normal Neck: Supple Respiratory: Airway patent, Breath sounds clear, Breath sounds equal, Respirations nonlabored Cardiovascular: RRR, Pulses normal, No rub, No murmur GI/: Soft, Bowel sounds normal (marked tenderness over suprapubic region ), Tender (guarding with rebound tenderness) Musculoskeletal: Normal strength, ROM intact, No edema, No calf tenderness Skin: Warm, Dry, Normal color Neurological: Sensation intact, Motor intact, Reflexes intact, Cranial nerves intact, Alert, Oriented Psychiatric: Affect appropriate Critical Care Note - Critical Care Note Total Time (mins): 660 Course - Course Hematology/Chemistry: 11/19/18 13:00 11/19/18 13:00 Orders, Labs, Meds: Lab Review 11/19/18 11/19/18 11/19/18 11:35 11:35 12:40 WBC RBC Hgb Hct MCV MCH MCHC RDW Coeff of Johnathan Plt Count Immature Gran % (Auto) Neut % (Auto) Lymph % (Auto) Cory[place] % (Auto) Eos % (Auto) Baso % (Auto) Immature Gran # (Auto) Neut # (Auto) Lymph # (Auto) Coryell # (Auto) Eos # (Auto) Baso # (Auto) Sodium Potassium Chloride Carbon Dioxide Anion Gap BUN Creatinine Estimated GFR (MDRD) BUN/Creatinine Ratio Glucose Lactic Acid Calcium Total Bilirubin AST ALT Alkaline Phosphatase Total Protein Albumin Globulin Albumin/Globulin Ratio Lipase Procalcitonin Serum , Qual Urine Color Yellow Urine Clarity Clear Urine pH 5.5 Ur Specific [place] 1.015 Urine Protein Negative Urine Glucose (UA) Negative Urine Ketones Negative Urine Blood Negative Urine Nitrite Negative Urine Bilirubin Negative Urine Urobilinogen 0.2 Ur Leukocyte Esterase 1+ Urine Microscopic WBC 10-20 Ur Squamous Epith Cells 5-10 Urine Bacteria Trace Urine Opiates Screen Negative Ur Oxycodone Screen Negative Urine Methadone Screen Negative Ur Propoxyphene Screen Negative Ur Barbiturates Screen Negative U Tricyclic Antidepress Negative Ur Phencyclidine Scrn Negative Ur Amphetamine Screen Negative U Methamphetamines Scrn Negative U Benzodiazepines Scrn Positive Urine Cocaine Screen Negative U Cannabinoids Screen Positive Influ A Molecular Assay Negative by naat Influ B Molecular Assay Negative by naat 11/19/18 11/19/18 11/19/18 13:00 13:00 13:00 WBC 18.70 H RBC 3.84 L Hgb 13.0 Hct 37.4 MCV 97.4 MCH 33.9 H MCHC 34.8 RDW Coeff of Johnathan 12.3 Plt Count 223 Immature Gran % (Auto) 0.5 Neut % (Auto) 82.8 Lymph % (Auto) 11.5 Coryell % (Auto) 4.1 Eos % (Auto) 0.6 Baso % (Auto) 0.5 Immature Gran # (Auto) 0.1 Neut # (Auto) 15.5 H Lymph # (Auto) 2.2 Coryell # (Auto) 0.8 Eos # (Auto) 0.1 Baso # (Auto) 0.1 Sodium 135.9 Potassium 4.00 Chloride 98.8 Carbon Dioxide 24.7 Anion Gap 16.40 BUN 8.5 Creatinine 0.61 Estimated GFR (MDRD) 120.00 BUN/Creatinine Ratio 13.93 Glucose 95.4 Lactic Acid Calcium 9.69 Total Bilirubin 1.07 AST 80.1 H ALT 104.0 H Alkaline Phosphatase 78.8 Total Protein 7.63 Albumin 5.16 H Globulin 2.47 Albumin/Globulin Ratio 2.08 Lipase Procalcitonin 0.06 Serum , Qual Urine Color Urine Clarity Urine pH Ur Specific [place] Urine Protein Urine Glucose (UA) Urine Ketones Urine Blood Urine Nitrite Urine Bilirubin Urine Urobilinogen Ur Leukocyte Esterase Urine Microscopic WBC Ur Squamous Epith Cells Urine Bacteria Urine Opiates Screen Ur Oxycodone Screen Urine Methadone Screen Ur Propoxyphene Screen Ur Barbiturates Screen U Tricyclic Antidepress Ur Phencyclidine Scrn Ur Amphetamine Screen U Methamphetamines Scrn U Benzodiazepines Scrn Urine Cocaine Screen U Cannabinoids Screen Influ A Molecular Assay Influ B Molecular Assay 11/19/18 11/19/18 11/19/18 13:00 13:00 13:00 WBC RBC Hgb Hct MCV MCH MCHC RDW Coeff of Johnathan Plt Count Immature Gran % (Auto) Neut % (Auto) Lymph % (Auto) Coryell % (Auto) Eos % (Auto) Baso % (Auto) Immature Gran # (Auto) Neut # (Auto) Lymph # (Auto) Coryell # (Auto) Eos # (Auto) Baso # (Auto) Sodium Potassium Chloride Carbon Dioxide Anion Gap BUN Creatinine Estimated GFR (MDRD) BUN/Creatinine Ratio Glucose Lactic Acid 1.82 Calcium Total Bilirubin AST ALT Alkaline Phosphatase Total Protein Albumin Globulin Albumin/Globulin Ratio Lipase 54.2 Procalcitonin Serum , Qual Negative Urine Color Urine Clarity Urine pH Ur Specific [place] Urine Protein Urine Glucose (UA) Urine Ketones Urine Blood Urine Nitrite Urine Bilirubin Urine Urobilinogen Ur Leukocyte Esterase Urine Microscopic WBC Ur Squamous Epith Cells Urine Bacteria Urine Opiates Screen Ur Oxycodone Screen Urine Methadone Screen Ur Propoxyphene Screen Ur Barbiturates Screen U Tricyclic Antidepress Ur Phencyclidine Scrn Ur Amphetamine Screen U Methamphetamines Scrn U Benzodiazepines Scrn Urine Cocaine Screen U Cannabinoids Screen Influ A Molecular Assay Influ B Molecular Assay Orders Category Date Time Status IV [ED IV/MEDIPORT/POWERPORT] .ONCE EMERGENCY 11/19/18 12:31 Active BLOOD CULTURE Stat LAB 11/19/18 13:00 Results CBC W/ AUTO DIFF Stat LAB 11/19/18 13:00 Completed CMP [COMPREHENSIVE METABOLIC PANEL] Stat LAB 11/19/18 13:00 Completed FLU A & B MOLECULAR [FLU A/B MOLECULAR] Stat LAB 11/19/18 12:40 Completed HCG QUALITATIVE [SERUM ] Stat LAB 11/19/18 13:00 Completed LACTIC ACID Stat LAB 11/19/18 13:00 Completed LIPASE Stat LAB 11/19/18 13:00 Completed PROCALCITONIN Stat LAB 11/19/18 13:00 Completed UA [URINALYSIS C & S IF INDICATED] Stat LAB 11/19/18 11:35 Completed URINE CULTURE Stat LAB 11/19/18 11:35 Completed URINE DRUG SCREEN (RAPID FOR ED) [DRUG SCREEN, URINE, LAB 11/19/18 11:35 Completed RAPID] Stat 0.9 % Sodium Chloride [Saline Flush] MEDS 11/19/18 12:34 Discontinued 1 syr IVF PRN PRN Ceftriaxone Sodium [Rocephin] MEDS 11/19/18 14:37 Discontinued 1 gm .ROUTE .STK-MED ONE Ceftriaxone Sodium [Rocephin] 1 gm MEDS 11/19/18 14:30 Discontinued 0.9 % Sodium Chloride [Sodium Chloride] 50 ml IV ONCE Dicyclomine Inj [Bentyl] MEDS 11/19/18 15:59 Discontinued 10 mg IM ONCE STA Nalbuphine HCl [Nubain] MEDS 11/19/18 12:38 Discontinued 10 mg IVP ONCE STA Nalbuphine HCl [Nubain] MEDS 11/19/18 16:09 Discontinued 5 mg IM ONCE STA Sodium Chloride 0.9% [Sodium Chloride] 1,000 ml MEDS 11/19/18 12:[address] ABDOMEN/PELVIS WO CONTRAST Stat RADS 11/19/18 12:35 Completed U/S PELVIS TAYLOR VAGINAL/NON OB Stat RADS 11/19/18 14:35 Completed Medications Discontinued Medications Generic Name Dose Route Start Last Admin Trade Name Freq PRN Reason Stop Dose Admin Dicyclomine HCl 10 mg 11/19/18 15:59 11/19/18 16:08 Bentyl IM 11/19/18 16:00 10 mg ONCE STA Administration Sodium Chloride 1,000 mls @ 500 mls/hr 11/19/18 12:36 11/19/18 13:00 Sodium Chloride IV 11/19/18 14:35 500 mls/hr BOLUS STA Administration Ceftriaxone Sodium 1 gm/ 50 mls @ 75 mls/hr 11/19/18 14:30 11/19/18 14:43 Sodium Chloride IV 11/19/18 15:09 75 mls/hr ONCE STA Administration Nalbuphine HCl 10 mg 11/19/18 12:38 11/19/18 13:00 Nubain IVP 11/19/18 12:39 10 mg ONCE STA Administration Nalbuphine HCl 5 mg 11/19/18 16:09 11/19/18 16:19 Nubain IM 11/19/18 16:10 5 mg ONCE STA Administration Sodium Chloride 1 syr 11/19/18 12:34 11/19/18 13:02 Saline Flush IVF 1 syr PRN PRN Administration To flush IV Vital Signs: Temp Pulse Resp BP Pulse Ox 11/19/18 11:19 100.3 F H 114 H 20 154/87 H 98 Departure - Departure Time of Disposition: 17:25 Disposition: HOME SELF-CARE Discharge Problem: Abdominal pain, UTI (urinary tract infection), Mittelschmerz, IBS (irritable bowel syndrome) Instructions: Mittewestleychmerz (ED), Urinary Tract Infection in Women (ED), Acute Abdominal Pain (ED) Condition: Good Pt referred to PMD for follow-up: Yes (with Dr Mosquera in the AM) IPMP verified?: No Additional Instructions: Follow up with your PCP Take medication as prescribed Prescriptions: Dicyclomine HCl [Bentyl] 1 - 2 mg PO QID PRN #40 capsule PRN Reason: abdomial cramping Nitrofurantoin Monohyd/M-Cryst [Macrobid 100 mg Capsule] 100 mg PO BID #20 capsule Ondansetron [Zofran Odt] 4 mg PO Q8H #7 tab.rapdis Allergies/Adverse Reactions: Allergies butorphanol [From Stadol] Adverse Reaction (Verified 11/19/18 12:59) morphine Adverse Reaction (Verified 11/19/18 11:21) Chest Tightness Home Medications: Ambulatory Orders Lorazepam [Ativan] 0.5 mg PO DAILY 12/15/16 Pantoprazole Sodium [Protonix] 40 mg PO DAILY 12/15/16 Paroxetine HCl [Paxil] 40 mg PO DAILY 07/22/17 Bupropion HCl [Wellbutrin Xl] 150 mg PO DAILY 07/16/18 Dicyclomine HCl [Bentyl] 1 - 2 mg PO QID PRN #40 capsule 11/19/18 Metoprolol Succinate 200 mg PO DAILY 11/19/18 Nitrofurantoin Monohyd/M-Cryst [Macrobid 100 mg Capsule] 100 mg PO BID #20 capsule 11/19/18 Ondansetron [Zofran Odt] 4 mg PO Q8H #7 tab.rapdis 11/19/18 Disposition Discussed With: Patient Additional Information: [id number]: Contacted Dr Mosquera patients PCP. Aware she had come to ER for evaluation of pain Reviewed pts presenting symptoms, evaluation, treatment rendered, responds and her response. CT Abdomen /Pelvis and Pelvic US revealed no acute findings Discussed admission. Workup complete. Recommends administration antispasmodic, discharge to home and to see him in the morning Reviewed with patient who is comfortable with plan and prefers discharge.
--- NOTE | 2018-11-19 14:10 | CT ---
EXAM: CT ABDOMEN AND PELVIS HISTORY: Acute lower abdominal pain TECHNIQUE: CT abdomen and pelvis without intravenous contrast. Images were reconstructed using 5 mm section thickness. Reformations were prepared. COMPARISON: 04/24/2017 FINDINGS: Diagnostic limitations may exist without including contrast enhanced images. Elongated right hepatic lobe with upper limit normal overall liver size at about 18 cm. There is moderate fatty infiltratio n of the liver without focal lesion. Spleen is within normal limits. No gallbladder or pancreatic a bnormality is seen. Adrenal glands appear normal. Kidneys have no hydronephrosis or evidence of sto leon. There is no perinephric fat stranding. Ureters are clear. Normal abdominal aorta. Stomach appears normal. The patient has a history of previous appendectomy. Bowel gas pattern and g eneral appearance is within normal limits. Uterus is unremarkable. Ovaries are mildly prominent. U rinary bladder is unremarkable. There is no ascites or inflammatory infiltration of the abdominal fa t. Ventral abdominal wall is intact without herniation. Bones appear appropriate for age. Lung bases a re clear. There is no pneumoperitoneum. IMPRESSION: 1. Upper limit normal sized, moderately fatty liver. 2. Mildly prominent ovaries. 3. Otherwise within normal limits.
[2018-11-19] MEDS ORDERED: ROCEPHIN 1 GM in SODIUM CHLORIDE 50 ML IV STA (14:30)
[2018-11-19] MEDS ORDERED: ROCEPHIN ONE (14:37)
--- NOTE | 2018-11-19 15:25 | US ---
EXAM: PELVIC ULTRASOUND COMPLETE HISTORY: Lower abdominal pain, prominent ovaries seen on same day CT FINDINGS: Ultrasound pelvis transvaginal. Transvaginal approach imaging was performed for improved resolution and anatomic definition. The uterus measured 8.1 x 3.7 x 4.1 centimeters. Myometrium was unremarkable. Endometrial stripe wa s symmetric and normal thickness at 0.5 centimeters. The right ovary measured 3.6 x 2.1 x 2.2 centimeters and the left ovary 3.8 x 2.3 x 2.5 centimeters o varies demonstrated normal blood flow and multiple follicles. No ascites. IMPRESSION: 1. Multiple ovarian follicles. Normal blood flow to the ovaries. 2. Uterus and endometrium are within limits.
[2018-11-19] MEDS ORDERED: BENTYL IM STA (15:59)
[2018-11-19] MEDS ORDERED: NUBAIN IM STA (16:09)
== END 2018-11-19 17:33 | disposition home or self-care (01) ==
LOC: ED 11:18
DX: N39.0 Urinary tract infection, site not specified (principal); K58.9 Irritable bowel syndrome, unspecified; N94.0 Mittelschmerz; R10.30 Lower abdominal pain, unspecified; I10 Essential (primary) hypertension; F17.210 Nicotine dependence, cigarettes, uncomplicated
CPT/HCPCS: 36415; 80053; 80306; 81001; 83605; 83690; 84145; 84703; 85025; 87040; 87086; 87502; 96361; 96365; 96372; 96375; 99283

== ENCOUNTER 2018-11-20 12:49 | Outpatient (CLI) ==
[2018-11-19 11:21] VITALS: BMI 34.2
== END 2018-11-20 12:50 | disposition home or self-care (01) ==
LOC: LAB 12:49
PROVIDERS: ATTEND Family Medicine
DX: N39.0 Urinary tract infection, site not specified (principal)
CPT/HCPCS: 81001; 87086

== ENCOUNTER 2018-12-03 09:12 | Emergency (ER) ==
[2018-12-03 09:18] VITALS: BP 152/116; TEMP 99.4; BMI 33.8
--- NOTE | 2018-12-03 09:18 | ED.PDOC ---
General ED Provider: Dr. CHULA WHITE Chief Complaint: Nausea/Vomiting Stated Complaint: Nausea, vomiting and diarrhea since yesterday morning at work. Romeo OK when waking up - sudden onset at work. Nobody else around her sick. Otherwise no other c/o. Time Seen by Physician: 09:19 Mode of Arrival: Walk-In Information Source: Patient Primary Care Provider: MARGARITO LEONE Nursing and Triage Documentation Reviewed and Agree: Yes Does patient meet sepsis criteria?: No System Inflammatory Response Syndrome: Not Applicable Sepsis Protocol: For patient's 13 years and over: Temp is 96.8 and below OR 101 and greater Pulse >90 BPM Resp >20/minute Acutely Altered Mental Status Are patient's symptoms suggestive of a new infection, such as: -Pneumonia -Skin, Soft Tissue -Endocarditis -UTI -Bone, Joint Infection -Implantable Device -Acute Abdominal Infection -Wound Infection -Meningitis -Blood Stream Catheter Infection -Unknown Review of Systems - Review Of Systems Constitutional: Reports: Malaise, Weakness Eyes: Reports: No symptoms Ears, Nose, Mouth, Throat: Reports: No symptoms Respiratory: Reports: No symptoms. Denies: Cough, Short of air Cardiac: Reports: No symptoms GI: Reports: Diarrhea, Nausea, Vomiting : Reports: No symptoms Musculoskeletal: Reports: Other (Aches all over) All Other Systems: Reviewed and Negative Past Medical History - Past Medical History Previously Healthy: Yes Endocrine: Reports: None Cardiovascular: Reports: Hypertension, Other (CHEST HURTS EVERY DAY.) Respiratory: Reports: None Hematological: Reports: None Gastrointestinal: Reports: None Genitourinary: Reports: Other ( induced HTN treated for 6 months) Neuro/Psych: Reports: Anxiety, Depression Musculoskeletal: Reports: None Cancer: Reports: None Last Menstrual Period: 12/03/18 Other Pertinent Past Medical History: HTN DEPR ANX ANXIOUS . - Surgical History General Surgical History: Reports: Appendectomy, Orthopedic (right arm surgery) , Unknown - Family History Family History: Reports: Unknown - Social History Smoking Status: Current every day smoker, Light tobacco smoker Hx Substance Use: No Alcohol Screening: Occasionally - Immunizations Tetanus Shot up to Date: No Physical Exam - Physical Exam Appearance: Ill-appearing Ill-appearing: Moderate Pain Distress: Mild (abdominal cramping) Neck: Supple Respiratory: Airway patent, Breath sounds clear, Breath sounds equal, Respirations nonlabored Cardiovascular: RRR GI/: Soft, Bowel sounds normal Skin: Warm, Dry, Normal color Neurological: Sensation intact, Motor intact, Alert, Oriented Psychiatric: Affect appropriate, Mood appropriate, Anxious Re-Evaluation - Re-Evaluation Time of Re-Evaluation: 10:55 Status: Improved Vital Signs Stable: Yes Appearance: NAD Neuro: Alert and Oriented X3 Critical Care Note - Critical Care Note Total Time (mins): 20 Course - Course Orders, Labs, Meds: Lab Review 12/03/18 10:20 Influ A Molecular Assay Negative by naat Influ B Molecular Assay Negative by naat Orders Category Date Time Status FLU A & B MOLECULAR [FLU A/B MOLECULAR] Stat LAB 12/03/18 10:20 Completed INFLUENZA A&B AB, QUANT Stat LAB 12/03/18 09:24 Stop Req Ondansetron HCl/Pf [Zofran 4 mg/2 ml] MEDS 12/03/18 09:23 Discontinued 4 mg IVP ONCE STA Sodium Chloride 0.9% [Sodium Chloride] 1,000 ml MEDS 12/03/18 09:22 Discontinued IV BOLUS Medications Discontinued Medications Generic Name Dose Route Start Last Admin Trade Name Freq PRN Reason Stop Dose Admin Sodium Chloride 1,000 mls @ 1,000 mls/hr 12/03/18 09:22 12/03/18 09:37 Sodium Chloride IV 12/03/18 10:21 1,000 mls/hr BOLUS STA Administration Ondansetron HCl 4 mg 12/03/18 09:23 12/03/18 09:36 Zofran 4 Mg/2 Ml IVP 12/03/18 09:24 4 mg ONCE STA Administration Vital Signs: Temp Pulse Resp BP Pulse Ox 12/03/18 09:12 99.4 F 115 H 18 152/116 H 98 Departure - Departure Time of Disposition: 10:59 Disposition: HOME SELF-CARE Discharge Problem: Gastroenteritis Instructions: Gastroenteritis (ED) Condition: Stable Pt referred to PMD for follow-up: Yes (Call for follow up appointment) IPMP verified?: No (N/A) Prescriptions: Ondansetron [Zofran Odt] 4 mg PO Q6HR PRN #10 tab.rapdis PRN Reason: Nausea / Vomiting Allergies/Adverse Reactions: Allergies butorphanol [From Stadol] Adverse Reaction (Verified 12/03/18 09:14) morphine Adverse Reaction (Verified 12/03/18 09:14) Chest Tightness Home Medications: Ambulatory Orders Lorazepam [Ativan] 0.5 mg PO DAILY 12/15/16 Pantoprazole Sodium [Protonix] 40 mg PO DAILY 12/15/16 Paroxetine HCl [Paxil] 40 mg PO DAILY 07/22/17 Bupropion HCl [Wellbutrin Xl] 150 mg PO DAILY 07/16/18 Dicyclomine HCl [Bentyl] 1 - 2 mg PO QID PRN #40 capsule 11/19/18 Metoprolol Succinate 200 mg PO DAILY 11/19/18 Ondansetron [Zofran Odt] 4 mg PO Q8H #7 tab.rapdis 11/19/18 Hydralazine HCl 25 mg PO DAILY 12/03/18 Lisinopril 20 mg PO DAILY 12/03/18 Ondansetron [Zofran Odt] 4 mg PO Q6HR PRN #10 tab.rapdis 12/03/18 Disposition Discussed With: Patient
[2018-12-03] MEDS ORDERED: SODIUM CHLORIDE 1,000 ML IV STA (09:22)
[2018-12-03] MEDS ORDERED: ZOFRAN 4 MG/2 ML IVP STA (09:23)
== END 2018-12-03 11:10 | disposition home or self-care (01) ==
LOC: ED 09:12
DX: K52.9 Noninfective gastroenteritis and colitis, unspecified (principal); I10 Essential (primary) hypertension; F17.210 Nicotine dependence, cigarettes, uncomplicated
CPT/HCPCS: 87502; 96360; 96361; 96374; 96375; 99283

== ENCOUNTER 2019-02-14 08:04 | Emergency (ER) ==
[2019-02-14 08:09] VITALS: TEMP 99.4; BMI 34.7
--- NOTE | 2019-02-14 08:34 | ED.PDOC ---
General ED Provider: Dr. MARGARITO ROCA MD Chief Complaint: Hypertension Stated Complaint: higher than normal BP Time Seen by Physician: 08:20 Mode of Arrival: Walk-In Information Source: Patient Exam Limitations: No limitations, Physical impairment Primary Care Provider: MARGARITO LEONE Nursing and Triage Documentation Reviewed and Agree: Yes Does patient meet sepsis criteria?: No If yes, has appropriate treatment been initiated?: Yes System Inflammatory Response Syndrome: Not Applicable Sepsis Protocol: For patient's 13 years and over: Temp is 96.8 and below OR 101 and greater Pulse >90 BPM Resp >20/minute Acutely Altered Mental Status Are patient's symptoms suggestive of a new infection, such as: -Pneumonia -Skin, Soft Tissue -Endocarditis -UTI -Bone, Joint Infection -Implantable Device -Acute Abdominal Infection -Wound Infection -Meningitis -Blood Stream Catheter Infection -Unknown Review of Systems - Review Of Systems Constitutional: Reports: Other (lightheadedness) Eyes: Reports: No symptoms Ears, Nose, Mouth, Throat: Reports: No symptoms Respiratory: Reports: No symptoms Cardiac: Reports: No symptoms GI: Reports: No symptoms : Reports: No symptoms Musculoskeletal: Reports: No symptoms Skin: Reports: No symptoms Neurological: Reports: No symptoms Endocrine: Reports: No symptoms Hematologic/Lymphatic: Reports: No symptoms All Other Systems: Reviewed and Negative Past Medical History - Past Medical History Previously Healthy: Yes Endocrine: Reports: None Cardiovascular: Reports: Hypertension, Other (CHEST HURTS EVERY DAY.) Respiratory: Reports: None Hematological: Reports: None Gastrointestinal: Reports: None Genitourinary: Reports: Other ( induced HTN treated for 6 months) Neuro/Psych: Reports: Anxiety, Depression Musculoskeletal: Reports: None Cancer: Reports: None Last Menstrual Period: 2 weeks ago Other Pertinent Past Medical History: HTN DEPR ANX ANXIOUS . - Surgical History General Surgical History: Reports: Appendectomy, Orthopedic (right arm surgery) , Unknown - Family History Family History: Reports: Unknown - Social History Smoking Status: Current every day smoker, Light tobacco smoker Hx Substance Use: No Alcohol Screening: Occasionally Physical Exam - Physical Exam Appearance: Obese Ill-appearing: None Pain Distress: None Eyes: FIONA, EOMI, Conjunctiva clear ENT: Ears normal, Nose normal, Oropharynx normal Respiratory: Airway patent, Breath sounds clear, Breath sounds equal, Respirations nonlabored Cardiovascular: RRR, Pulses normal, No rub, No murmur GI/: Soft, Nontender, No masses, Bowel sounds normal, No Organomegaly Musculoskeletal: Normal strength, ROM intact, No edema, No calf tenderness Skin: Warm, Dry, Normal color Neurological: Sensation intact, Motor intact, Reflexes intact, Cranial nerves intact, Alert, Oriented Psychiatric: Affect appropriate, Mood appropriate Critical Care Note - Critical Care Note Total Time (mins): 0 Course - Course Orders, Labs, Meds: Orders Category Date Time Status Lorazepam [Ativan] MEDS 02/14/19 08:32 Discontinued 1 mg IM ONCE STA Medications Discontinued Medications Generic Name Dose Route Start Last Admin Trade Name Jjq PRN Reason Stop Dose Admin Lorazepam 1 mg 02/14/19 08:32 02/14/19 08:44 Ativan IM 02/14/19 08:33 1 mg ONCE STA Administration Vital Signs: Temp Pulse Resp BP Pulse Ox 02/14/19 08:54 98 H 20 163/105 H 02/14/19 08:04 99.4 F 108 H 20 167/136 H 98 Departure - Departure Time of Disposition: 10:00 Disposition: HOME SELF-CARE Discharge Problem: Hypertension Qualifiers: Hypertension type: essential hypertension Qualified Code(s): I10 - Essential ( primary) hypertension Condition: Good Pt referred to PMD for follow-up: Yes IPMP verified?: No Allergies/Adverse Reactions: Allergies butorphanol [From Stadol] Adverse Reaction (Verified 02/14/19 08:11) morphine Adverse Reaction (Verified 02/14/19 08:11) Chest Tightness Home Medications: Ambulatory Orders Lorazepam [Ativan] 0.5 mg PO DAILY 12/15/16 Pantoprazole Sodium [Protonix] 40 mg PO DAILY 12/15/16 Paroxetine HCl [Paxil] 40 mg PO DAILY 07/22/17 Bupropion HCl [Wellbutrin Xl] 150 mg PO DAILY 07/16/18 Metoprolol Succinate 200 mg PO DAILY 11/19/18 Hydralazine HCl 25 mg PO DAILY 12/03/18 Lisinopril 20 mg PO DAILY 12/03/18 Disposition Discussed With: Patient, Family
[2019-02-14] MEDS: ATIVAN IM STA (08:44)
[2019-02-14 09:59] VITALS: BP 136/97
== END 2019-02-14 10:06 | disposition home or self-care (01) ==
LOC: ED 08:04
DX: I10 Essential (primary) hypertension (principal); R42 Dizziness and giddiness; F17.210 Nicotine dependence, cigarettes, uncomplicated; Z79.899 Other long term (current) drug therapy
CPT/HCPCS: 96372; 99283

== ENCOUNTER 2019-10-16 18:36 | Observation (INO) ==
--- NOTE | 2019-10-16 19:06 | ED.PDOC ---
General ED Provider: Dr. EARL SHEIKH Chief Complaint: Chest Pain Stated Complaint: elevated BP - hx of admits for same drank a 5th yesterday some headache - nothing taken . pm meds not taken yet Time Seen by Physician: 19:04 Mode of Arrival: Walk-In Information Source: Patient Primary Care Provider: MARGARITO LEONE Nursing and Triage Documentation Reviewed and Agree: Yes Does patient meet sepsis criteria?: No System Inflammatory Response Syndrome: Not Applicable Sepsis Protocol: For patient's 13 years and over: Temp is 96.8 and below OR 101 and greater Pulse >90 BPM Resp >20/minute Acutely Altered Mental Status Are patient's symptoms suggestive of a new infection, such as: -Pneumonia -Skin, Soft Tissue -Endocarditis -UTI -Bone, Joint Infection -Implantable Device -Acute Abdominal Infection -Wound Infection -Meningitis -Blood Stream Catheter Infection -Unknown Cardiovascular Complaint Exam Hypertension Complaint/Exam Onset/Duration: today Symptoms Are: Still present Aggravating: Reports None Alleviating: Reports None Associated Signs and Symptoms: Reports Anxiety Related History: Reports Similar episode, Current Beta Jana and Other (alcohol binge) Related Surgical History: Reports None Recent Change in Medications: No Papilledema Present: No JVD Present: No Carotid Bruit Present: No Differential Diagnoses: Drug Withdrawal, Hypertension, Hypertensive Urgency and Migraine Quality Indicator For Non-Traumatic Chest Pain/Syncope: EKG Performed Review of Systems Review Of Systems Constitutional: Reports No symptoms Eyes: Reports No symptoms Ears, Nose, Mouth, Throat: Reports No symptoms Respiratory: Reports No symptoms Cardiac: Reports Other (chest tight pt says from anxiety ) GI: Reports No symptoms : Reports No symptoms Musculoskeletal: Reports No symptoms Skin: Reports No symptoms Neurological: Reports Headache All Other Systems: Reviewed and Negative [facility] Medical History Anxiety (Acute) Depression (Acute) History of appendectomy (Acute) Hypertension (Acute) Social History Smoking and tobacco status: Current every day smoker Tobacco type: cigarettes Tobacco: How many years used: 10 Passive smoking exposure: No Alcohol intake: current Alcohol intake frequency: a few times a week Alcohol type: hard liquor Substance use type: does not use Number of children: 1 Highest education level completed: some college, no degree Financial difficulty paying for basics: somewhat hard Current occupational status: unemployed Current occupation: Stay at home mom Sexually active: Yes Do you think of yourself as: straight/heterosexual Current gender identity: female Current diet type/program: regular Well-balanced diet: rarely Caffeine: No Water heater temperature set < 120 degrees: Yes Working smoke detector in home: Yes Fire extinguisher in home: Yes Carbon monoxide detector in home: Yes Firearms in home: No Female Reproductive History Menstrual Hx Hysterectomy: No Hx Tubal Ligation: No Physical Exam Physical Exam Appearance: Reports Well-appearing Ill-appearing: Mild Pain Distress: None Eyes: Reports FIONA, EOMI and Conjunctiva clear ENT: Reports Ears normal Neck: Supple Respiratory: Reports Airway patent and Breath sounds clear Cardiovascular: Reports RRR GI/: Reports Soft Musculoskeletal: Reports Normal strength Skin: Reports Warm and Dry Neurological: Reports Sensation intact and Motor intact Psychiatric: Reports Affect appropriate Interpretation Radiology Interpretation Radiology Interpretation By: Radiologist Radiology Results: Negative EKG Interpretation Rate: Normal Rhythm: Sinus Ectopy: None [place]: NL ST Segment: Normal Re-Evaluation Re-Evaluation Time of Re-Evaluation: 21:07 Status: Improved Vital Signs Stable: Yes Appearance: NAD Lungs: Clear Skin: Warm and Dry Neuro: Alert and Oriented X3 CV: RRR Additional Comments: starting bp 217/143 20% decrease is 174/114 Current 174/114 pt feels better watching tv Add apap for mild H/A Physician Notification Case Discussed Physician Notified: daniella PEPE Time of Notification: 21:10 Endorsed To/Discussed With: Dr Leone agrees with observation / patient agrees with plan Critical Care Note Critical Care Note Total Time (mins): 30 Course Course Hematology/Chemistry: 10/16/19 19:00 10/16/19 19:00 Orders, Labs, Meds: Lab Review 10/16/19 10/16/19 10/16/19 19:00 19:00 19:00 WBC 9.73 RBC 3.96 L Hgb 12.8 Hct 37.9 MCV 95.7 MCH 32.3 H MCHC 33.8 RDW Coeff of Johnathan 12.8 Plt Count 297 Immature Gran % (Auto) 0.4 Neut % (Auto) 63.3 Lymph % (Auto) 28.2 [place] % (Auto) 4.9 Eos % (Auto) 2.6 Baso % (Auto) 0.6 Immature Gran # (Auto) 0.0 Neut # (Auto) 6.2 Lymph # (Auto) 2.7 [place] # (Auto) 0.5 Eos # (Auto) 0.3 Baso # (Auto) 0.1 Sodium 138.7 Potassium 3.73 Chloride 102.7 Carbon Dioxide 24.6 Anion Gap 15.13 BUN 12.2 Creatinine 0.57 L Estimated GFR (MDRD) 128.00 BUN/Creatinine Ratio 21.40 Glucose 105.9 Calcium 9.86 Total Bilirubin 0.23 AST 49.0 H ALT 57.2 H Alkaline Phosphatase 80.8 Troponin I < 0.012 Total Protein 7.29 Albumin 4.54 Globulin 2.75 Albumin/Globulin Ratio 1.65 Urine Color Urine Clarity Urine pH Ur Specific Rico Urine Protein Urine Glucose (UA) Urine Ketones Urine Blood Urine Nitrite Urine Bilirubin Urine Urobilinogen Ur Leukocyte Esterase Urine Test Urine Opiates Screen Ur Oxycodone Screen Urine Methadone Screen Ur Propoxyphene Screen Ur Barbiturates Screen U Tricyclic Antidepress Ur Phencyclidine Scrn Ur Amphetamine Screen U Methamphetamines Scrn U Benzodiazepines Scrn Urine Cocaine Screen U Cannabinoids Screen Plasma/Serum Alcohol < 10.0 10/16/19 10/16/19 10/16/19 19:50 19:50 19:50 WBC RBC Hgb Hct MCV MCH MCHC RDW Coeff of Johnathan Plt Count Immature Gran % (Auto) Neut % (Auto) Lymph % (Auto) [place] % (Auto) Eos % (Auto) Baso % (Auto) Immature Gran # (Auto) Neut # (Auto) Lymph # (Auto) [place] # (Auto) Eos # (Auto) Baso # (Auto) Sodium Potassium Chloride Carbon Dioxide Anion Gap BUN Creatinine Estimated GFR (MDRD) BUN/Creatinine Ratio Glucose Calcium Total Bilirubin AST ALT Alkaline Phosphatase Troponin I Total Protein Albumin Globulin Albumin/Globulin Ratio Urine Color Yellow Urine Clarity Clear Urine pH 6.5 Ur Specific Rico >=1.030 Urine Protein Negative Urine Glucose (UA) Negative Urine Ketones Negative Urine Blood Negative Urine Nitrite Negative Urine Bilirubin Negative Urine Urobilinogen 0.2 Ur Leukocyte Esterase Negative Urine Test Negative Urine Opiates Screen Negative Ur Oxycodone Screen Negative Urine Methadone Screen Negative Ur Propoxyphene Screen Negative Ur Barbiturates Screen Negative U Tricyclic Antidepress Negative Ur Phencyclidine Scrn Negative Ur Amphetamine Screen Negative U Methamphetamines Scrn Negative U Benzodiazepines Scrn Positive H Urine Cocaine Screen Negative U Cannabinoids Screen Positive H Plasma/Serum Alcohol Orders Category Date Time Status PLACE PATIENT OBSERVATION .TO [facility] (MONITORED BED ADMISSION 10/16/19 2 1:16 Active ) EKG-(ED ONLY) Stat CARDIO 10/16/19 19:07 Completed ACTIVITY .Early Mobilization for VTE Prevention CARE 10/16/19 21:21 Completed INTAKE & OUTPUT Q8HR CARE 10/16/19 21:22 Completed TELEMETRY MONITORING TELE CARE 10/16/19 21:16 Active VITAL SIGNS Q4HR CARE 10/16/19 21:24 Completed CARDIAC DIET DIETARY 10/16/19 Breakfast Ordered IV [ED IV/MEDIPORT/POWERPORT] .ONCE EMERGENCY 10/16/19 21:13 Active BLOOD ALCOHOL Stat LAB 10/16/19 19:00 Completed CBC W/ AUTO DIFF Stat LAB 10/16/19 19:00 Completed COMPREHENSIVE METABOLIC PANEL Stat LAB 10/16/19 19:00 Completed DRUG SCREEN, URINE, RAPID Stat LAB 10/16/19 19:50 Completed TROPONIN I Stat LAB 10/16/19 19:00 Completed URINALYSIS C & S IF INDICATED Stat LAB 10/16/19 19:50 Completed URINE Stat LAB 10/16/19 19:50 Completed 0.9 % Sodium Chloride [Saline Flush] MEDS 10/16/19 21:13 Active 1 syr IVF PRN PRN Acetaminophen [Tylenol] MEDS 10/16/19 21:09 Discontinued 1,000 mg PO ONCE STA Hydralazine HCl [Apresoline] MEDS 10/16/19 19:20 Discontinued 25 mg PO ONCE STA Labetalol HCl [Trandate] MEDS 10/16/19 20:33 Discontinued 10 mg IVP ONCE STA Lisinopril [Zestril] MEDS 10/16/19 19:20 Discontinued 20 mg PO ONCE STA Lorazepam Inj [Ativan] MEDS 10/16/19 19:20 Discontinued 0.5 mg IV ONCE STA RESUSCITATION STATUS Routine OTHERS 10/16/19 21:21 Ordered CHEST, 1V AP ONLY Stat RADS 10/16/19 19:[address] HEAD W/O CONTRAST Stat RADS 10/16/19 19:17 Completed Medications Generic Name Dose Route Start Last Admin Trade Name Freq PRN Reason Stop Dose Admin Bupropion HCl 150 mg 10/17/19 09:00 Wellbutrin Xl PO DAILY CUAUHTEMOC Hydralazine HCl 25 mg 10/17/19 09:00 Apresoline PO DAILY CUAUHTEMOC Lisinopril 20 mg 10/17/19 09:00 Zestril PO BID CUAUHTEMOC Lorazepam 0.5 mg 10/17/19 09:00 Ativan PO BID CUAUHTEMOC Metoprolol Succinate 100 mg 10/17/19 09:00 Toprol Xl PO DAILY CUAUHTEMOC Pantoprazole Sodium 40 mg 10/17/19 06:30 10/17/19 05:48 Protonix PO 40 mg DAILY@0630 CUAUHTEMOC Administration Paroxetine HCl 20 mg 10/17/19 09:00 Paxil PO DAILY CUAUHTEMOC Sodium Chloride 1 syr 10/16/19 21:13 Saline Flush IVF PRN PRN To flush IV Sodium Chloride 1 syr 10/17/19 05:00 10/17/19 05:48 Saline Flush IVF 1 syr Q8HR CUAUHTEMOC Administration Discontinued Medications Generic Name Dose Route Start Last Admin Trade Name Freq PRN Reason Stop Dose Admin Acetaminophen 1,000 mg 10/16/19 21:09 10/16/19 21:22 Tylenol PO 10/16/19 21:10 1,000 mg ONCE STA Administration Hydralazine HCl 25 mg 10/16/19 19:20 10/16/19 19:44 Apresoline PO 10/16/19 19:21 25 mg ONCE STA Administration Labetalol HCl 10 mg 10/16/19 20:33 10/16/19 20:45 Trandate IVP 10/16/19 20:34 10 mg ONCE STA Administration Lisinopril 20 mg 10/16/19 19:20 10/16/19 19:44 Zestril PO 10/16/19 19:21 20 mg ONCE STA Administration Lorazepam 0.5 mg 10/16/19 19:20 10/16/19 19:44 Ativan IV 10/16/19 19:21 0.5 mg ONCE STA Administration Vital Signs: Temp Pulse Resp BP Pulse Ox 10/16/19 18:41 97.8 F 83 18 217/143 H 98 pt bp met 20% reduction .Plan to plae in observation in even of rebound or recurrance - pt agrees KATHYA Risk Score KATHYA Risk Score: Risk Score Odds of by 30D 0 0.1 (0.1-0.2) 1 0.3 (0.2-0.3) 2 0.4 (0.3-0.5) 3 0.7 (0.6-0.9) 4 1.2 (1.0-1.5) 5 2.2 (1.9-2.6) 6 3.0 (2.5-3.6) 7 4.8 (3.8-6.1) Discharge Plan Discharge Patient Disposition: ADMITTED INPATIENT Discharge Problem: Hypertensive urgency ED Provider: EARL SHEIKH Condition: Good Discharge Date/Time: 10/16/19 21:10
[2019-10-16] MEDS ORDERED: APRESOLINE PO STA (19:20)
[2019-10-16] MEDS ORDERED: ATIVAN IV STA (19:20)
[2019-10-16] MEDS ORDERED: ZESTRIL PO STA (19:20)
[2019-10-16 19:28] LABS: HEMATOCRIT 37.9 % (37.0-47.0)
[2019-10-16 20:09] LABS: URINE PREGNANCY TEST NEGATIVE (NEGATIVE)
[2019-10-16] MEDS ORDERED: TRANDATE IVP STA (20:33)
--- NOTE | 2019-10-16 20:36 | DI ---
EXAM: Single-view chest HISTORY: Headache COMPARISON: None. FINDINGS: The cardiomediastinal silhouette is normal. The lungs are clear bilaterally. No acute os seous abnormalities are identified. IMPRESSION: No evidence of active pulmonary disease.
--- NOTE | 2019-10-16 20:37 | CT ---
EXAM: CT scan of the head without contrast HISTORY: Headache, hypertension TECHNIQUE: Helical imaging of the head was performed without contrast. 5 mm thin axial images and c oronal and sagittal images were provided for internal. Comparison 01/02/2018. FINDINGS: The hall-white interface appears normal. No acute hemorrhages are seen. There is no mass effect. The basal cisterns are patent. The paranasal sinuses and mastoid air cells are clear. The calvarium appears normal. IMPRESSION: No acute intracranial abnormalities are seen.
[2019-10-16] MEDS ORDERED: TYLENOL PO STA (21:09)
[2019-10-16 22:11] VITALS: BMI 35.9
[2019-10-17] MEDS: PROTONIX PO SCH (05:48)
[2019-10-17] MEDS: APRESOLINE PO SCH (08:21)
[2019-10-17] MEDS: PAXIL PO SCH (08:22)
[2019-10-17] MEDS: TOPROL XL PO SCH (08:22)
[2019-10-17] MEDS: ZESTRIL PO SCH ×2 (08:22→21:41)
[2019-10-17] MEDS: ATIVAN PO SCH ×2 (08:22→21:41)
[2019-10-17] MEDS: WELLBUTRIN XL PO SCH (08:22)
[2019-10-17] MEDS: CARDENE 20 MG/200 ML NACL 20 MG/200 ML BAG IV SCH ×4 (08:22→23:56)
[2019-10-17] MEDS: TYLENOL PO PRN ×3 (11:19→23:56)
[2019-10-18] MEDS: CARDENE 20 MG/200 ML NACL 20 MG/200 ML BAG IV SCH (05:12)
[2019-10-18 05:43] VITALS: TEMP 98.8
[2019-10-18 05:48] LABS: HEMATOCRIT 39.2 % (37.0-47.0)
[2019-10-18] MEDS ORDERED: PROCARDIA XL PO STA (05:57)
[2019-10-18] MEDS: PROTONIX PO SCH (05:58)
[2019-10-18] MEDS: WELLBUTRIN XL PO SCH (08:41)
[2019-10-18] MEDS: APRESOLINE PO SCH (08:41)
[2019-10-18] MEDS: ATIVAN PO SCH (08:42)
[2019-10-18] MEDS: TOPROL XL PO SCH (08:42)
[2019-10-18] MEDS: ZESTRIL PO SCH (08:42)
[2019-10-18] MEDS: PAXIL PO SCH (08:42)
[2019-10-18] MEDS ORDERED: PROCARDIA XL PO SCH (09:00)
[2019-10-18] MEDS: TYLENOL PO PRN (12:32)
[2019-10-18 18:10] VITALS: BP 148/88
--- NOTE | 2019-11-17 10:08 | SSS ---
PRINCIPAL DIAGNOSIS: 1. Hypertensive urgency DISCUSSION: This is a 24 year old lady with a history of hypertension who presents for an elevation of blood pressure and headache. She was seen in the emergency department by Dr. Gomez with the above history. She was noted to have markedly elevated blood pressure. CT of the head was negative for acute bleed and she was subsequently admitted to my service for control of her hypertension. PAST MEDICAL HISTORY: MEDICATIONS: Ativan Protonix Paxil Wellbutrin Metoprolol Hydralazine Lisinopril ALLERGIES: Butorphanol Morphine PAST MEDICAL HISTORY: History of anxiety History of depression History of Hypertension PAST SURGICAL HISTORY: Appendectomy SOCIAL HISTORY: She does consumed alcohol and is a current smoker. Denies any illicit drug use. FAMILY HISTORY: Reviewed and thought not to be pertinent to discussion. REVIEW OF SYSTEMS: Mild headaches. No visual changes, tinnitus, chest pain, shortness of breath, hemoptysis, abdominal pain, blood in the stool, urinary symptoms or seizures. PHYSICAL EXAMINATION: VITAL SIGNS: blood pressure is markedly elevated in the emergency department, see ER note. HEENT: Pupils are round. NECK: Supple. CHEST: Clear. CARDIOVASCULAR: Regular rate and rhythm. ABDOMEN: Soft, nontender. EXTREMITIES: Distal extremities without cyanosis or edema. CLINICAL COURSE: The patient was admitted to my services and started on Cardene drip. Her blood pressure responded. She was switched to Procardia and her blood pressure stabilized. Her headache improved and at time of discharge her blood pressure was markedly improved without headache. At this point the patient was going to be discharged. She will discharged with instructions to followup with me next week. If the blood pressure remained labile we will refer to nephrology. JAMAAL
== END 2019-10-18 18:28 | disposition home or self-care (01) ==
LOC: MEDSURG B 18:40 → ED 18:40 → MEDSURG B 21:10 → SCU 10-17 08:09
PROVIDERS: ADMIT Family Medicine; ATTEND Family Medicine
DX: R07.9 Chest pain, unspecified; Z79.899 Other long term (current) drug therapy; F41.9 Anxiety disorder, unspecified; R51 Headache; I16.0 Hypertensive urgency; F17.210 Nicotine dependence, cigarettes, uncomplicated

== ENCOUNTER 2021-11-27 12:17 | Observation (INO) ==
[2021-11-27] MEDS ORDERED: ZOFRAN 4 MG/2 ML IVP ONE (12:41)
[2021-11-27] MEDS ORDERED: SODIUM CHLORIDE 1,000 ML IV STA (12:41)
--- NOTE | 2021-11-27 12:45 | ED.PDOC ---
General ED Provider: Dr. KATINA CARLIN MD Chief Complaint: Nausea/Vomiting Stated Complaint: mild to mod off and on NVD for 4 days, unable to eat, family with similar symptoms last week, no fever, no pain, no injury, +hx appendectomy, not dm Time Seen by Provider: 11/27/21 12:38 Mode of Arrival: Walk-In Information Source: Patient Primary Care Provider: MARGARITO MOSQUERA Nursing and Triage Documentation Reviewed and Agree: Yes Does patient meet sepsis criteria?: No System Inflammatory Response Syndrome: Not Applicable Sepsis Protocol: For patient's 13 years and over: Temp is 96.8 and below OR 101 and greater Pulse >90 BPM Resp >20/minute Acutely Altered Mental Status Are patient's symptoms suggestive of a new infection, such as: -Pneumonia -Skin, Soft Tissue -Endocarditis -UTI -Bone, Joint Infection -Implantable Device -Acute Abdominal Infection -Wound Infection -Meningitis -Blood Stream Catheter Infection -Unknown Review of Systems Review Of Systems Constitutional: Denies Fever Eyes: Denies Vision change Ears, Nose, Mouth, Throat: Denies Throat pain Respiratory: Denies Short of air Cardiac: Denies Chest pain GI: Reports Diarrhea, Nausea and Vomiting; Denies Abdominal pain : Denies Burning Musculoskeletal: Denies Back pain Skin: Denies Rash Neurological: Denies Cognitive dysfunction All Other Systems: Other [facility] Medical History (Updated 11/27/21 @ 16:29 by KATINA CARLIN MD) Anxiety Depression Hypertension Social History Smoking and tobacco status: Current some day smoker Tobacco type: cigarettes Tobacco: How many years used: 10 Passive smoking exposure: No Alcohol intake: current Alcohol intake frequency: a few times a week Alcohol type: hard liquor Substance use type: does not use Number of children: 1 Highest education level completed: some college, no degree Financial difficulty paying for basics: somewhat hard Current occupational status: unemployed Current occupation: Stay at home mom Sexually active: Yes Do you think of yourself as: straight/heterosexual Current gender identity: female Current diet type/program: regular Well-balanced diet: rarely Caffeine: No Water heater temperature set < 120 degrees: Yes Working smoke detector in home: Yes Fire extinguisher in home: Yes Carbon monoxide detector in home: Yes Firearms in home: No Surgical History History of appendectomy Female Reproductive History Menstrual Hx Hysterectomy: No Hx Tubal Ligation: No Physical Exam Physical Exam Appearance: Reports Well-appearing Ill-appearing: None Pain Distress: None Eyes: Reports Conjunctiva clear ENT: Denies Rhinorrhea Neck: Supple Respiratory: Reports Airway patent Cardiovascular: Reports RRR GI/: Reports Soft and Nontender Musculoskeletal: Reports ROM intact and No edema Skin: Reports Warm and Dry Neurological: Reports Alert and Oriented Psychiatric: Reports Affect appropriate Interpretation Radiology Interpretation Radiology Interpretation By: Radiologist Exam Interpreted: CT Scan Xray Comments: right adnexal mass, no obstruction Radiology Interpretation By: Radiologist Exam Interpreted: Other (us per Rad probable right adnexal cyst) Critical Care Note Critical Care Note Total Critical Care Time (mins): 0 Course Course Hematology/Chemistry: 11/27/21 12:52 11/27/21 12:52 Orders, Labs, Meds: Lab Review 11/27/21 11/27/21 11/27/21 12:52 12:52 12:52 WBC 12.43 H RBC 4.28 Hgb 13.9 Hct 39.9 MCV 93.2 MCH 32.5 H MCHC 34.8 RDW Coeff of Johnathan 13.0 Plt Count 359 Immature Gran % (Auto) 0.5 Neut % (Auto) 64.2 Lymph % (Auto) 30.1 [place] % (Auto) 4.1 Eos % (Auto) 0.5 Baso % (Auto) 0.6 Neut # (Auto) 8.0 H Lymph # (Auto) 3.7 H [place] # (Auto) 0.5 Eos # (Auto) 0.1 Baso # (Auto) 0.1 Immature Gran # (Auto) 0.1 Sodium 145.3 H Potassium 3.90 Chloride 105.1 Carbon Dioxide 23.7 Anion Gap 20.40 BUN 15.2 Creatinine 1.08 Estimated GFR (MDRD) 60.00 BUN/Creatinine Ratio 14.07 Glucose 103.9 Calcium 9.81 Total Bilirubin 0.49 AST 27.0 ALT 21.7 Alkaline Phosphatase 49.5 Total Protein 8.13 Albumin 5.44 H Globulin 2.69 Albumin/Globulin Ratio 2.02 Lipase 82.9 Serum , Qual Negative Orders Category Date Time Status PLACE PATIENT OBSERVATION .TO [facility] (NON-MONITORED ADMISSION 11/27/21 16:20 Ordered BED) ACTIVITY .BR with BRP CARE 11/27/21 16:20 Ordered BLOOD GLUCOSE MONITORING (MED/SURG) 0630,1100,1700,2100 CARE 11/27/21 16:22 Ordered INTAKE & OUTPUT Q8HR CARE 11/27/21 16:20 Ordered IP: INSERT SALINE LOCK ONCE CARE 11/27/21 16:20 Ordered REMINDER: Give Insulin if Needed 0630,1100,1700,2100 CARE 11/27/21 16:20 Ordered URINALYSIS COLLECTION (NURSING) ONCE CARE 11/27/21 14:34 Active VITAL SIGNS Q8HR CARE 11/27/21 16:20 Ordered REGULAR DIET DIETARY 11/27/21 Dinner Ordered CBC W/ AUTO DIFF DAILY@0600 LAB 11/28/21 06:00 Ordered CBC W/ AUTO DIFF DAILY@0600 LAB 11/29/21 06:00 Ordered CBC W/ AUTO DIFF Stat LAB 11/27/21 12:52 Completed CMP [COMPREHENSIVE METABOLIC PANEL] Stat LAB 11/27/21 12:52 Completed COMPREHENSIVE METABOLIC PANEL DAILY@0600 LAB 11/28/21 06:00 Ordered COMPREHENSIVE METABOLIC PANEL DAILY@0600 LAB 11/29/21 06:00 Ordered COVID [SARS COV-2 RNA RAPID RASTA] Stat LAB 11/27/21 16:02 Received HCG QUALITATIVE [SERUM ] Stat LAB 11/27/21 12:52 Completed LIPASE Stat LAB 11/27/21 12:52 Completed 1 gm/50 ml IV Daily Kanchan MEDS 11/27/21 16:30 Ordered Ceftriaxone/D5w 1 gm Premix [Rocephin 1 gm/50 ml D5w] 1 gm in 50 ml IV DAILY Acetaminophen [Tylenol] MEDS 11/27/21 16:20 Ordered 650 mg PO Q4H PRN Insulin Regular, Human [Humulin R] MEDS 11/27/21 16:20 Ordered See Protocol SUBCUT PRN PRN Ondansetron HCl/Pf [Zofran 4 mg/2 ml] MEDS 11/27/21 16:20 Ordered 4 mg IVP 2-3XD PRN Ondansetron HCl/Pf [Zofran 4 mg/2 ml] MEDS 11/27/21 12:41 Discontinued 4 mg IVP ONCE ONE Sodium Chloride 0.9% [Sodium Chloride] 1,000 ml MEDS 11/27/21 16:30 Ordered IV 125 mls/hr Sodium Chloride 0.9% [Sodium Chloride] 1,000 ml MEDS 11/27/21 12:41 Discontinued IV BOLUS RESUSCITATION STATUS Routine OTHERS 11/27/21 16:[address] ABDOMEN/PELVIS WO CONTRAST Stat RADS 11/27/21 13:33 Completed ULTRASOUND PELVIS TAYLOR VAGINAL/NONOB [U/S PELVIS TAYLOR RADS 11/27/21 14:34 Completed VAGINAL/NON OB] Stat Medications Generic Name Dose Route Start Last Admin Trade Name Jorge PRN Reason Stop Dose Admin Acetaminophen 650 mg 11/27/21 16:20 Acetaminophen 325 Mg Tablet PO Q4H PRN Mild Pain Sodium Chloride 1,000 mls @ 125 mls/hr 11/27/21 16:30 Sodium Chloride IV .Q8H KANCHAN CEFTRIAXONE/D5W 1 GM PREMIX 1 gm in 50 mls @ 75 mls/hr 11/27/21 16:30 Rocephin 1 Gm/50 Ml D5w IV 11/30/21 16:29 DAILY KANCHAN Insulin Human Regular 0 unit 11/27/21 16:20 Insulin Regular, Human 100 Unit/Ml (3ml) Vial SUBCUT PRN PRN Hyperglycemia Protocol Ondansetron HCl 4 mg 11/27/21 16:20 Ondansetron Hcl/Pf 4 Mg/2 Ml Sdv IVP 2-3XD PRN Nausea / Vomiting Discontinued Medications Generic Name Dose Route Start Last Admin Trade Name Jorge PRN Reason Stop Dose Admin Sodium Chloride 1,000 mls @ 1,000 mls/hr 11/27/21 12:41 11/27/21 12:53 Sodium Chloride IV 11/27/21 13:40 1,000 mls/hr BOLUS STA Administration Ondansetron HCl 4 mg 11/27/21 12:41 11/27/21 12:53 Ondansetron Hcl/Pf 4 Mg/2 Ml Sdv IVP 11/27/21 12:42 4 mg ONCE ONE Administration Vital Signs: Temp Pulse Resp BP Pulse Ox 11/27/21 15:58 100 H 20 100/58 L 11/27/21 12:17 97.6 F 93 H 16 98/62 97 Discharge Plan Discharge Patient Disposition: PLACED OBSERVATION Discharge Problem: Vomiting Prescriptions: No Action lorazepam [Ativan] 0.5 MG tablet 0.5 mg PO BID 0RF pantoprazole [Protonix] 40 MG tablet,delayed release (DR/EC) 40 mg PO DAILY 0RF nifedipine 60 mg Tablet Extended Release 24hr 60 mg PO DAILY 0RF ondansetron 8 mg tablet,disintegrating 8 mg PO Q8H PRN (Reason: nausea and vomiting) Qty: 30 0RF metoprolol succinate 100 MG tablet extended release 24 hr 100 mg PO DAILY 0RF lisinopril 20 MG tablet 40 mg PO DAILY 0RF hydralazine 25 MG tablet 25 mg PO BID 0RF cholecalciferol (vitamin D3) [Vitamin D3] 125 mcg (5,000 unit) Tablet 5,000 mcg PO WEEKLY 0RF atorvastatin 20 mg Tablet 20 mg PO BEDTIME 0RF clonidine HCl 0.2 mg Tablet 0.2 mg PO TID PRN (Reason: ELEVATED BLOOD PRESSURE) 0RF Rx Instructions: PRN FOR BP > 150/90 ED Provider: KATINA CARLIN Condition: Stable Physician Progress Note: []admit to hospitalist for intractable vomiting d/w Dr Mosquera
[2021-11-27 12:56] LABS: BASOPHILS # (AUTO) 0.1 K/uL (0-0.2); BASOPHILS % (AUTO) 0.6 % (0.0-3.0); EOSINOPHILS # (AUTO) 0.1 K/ul (0.0-0.7); EOSINOPHILS % (AUTO) 0.5 % (0.0-7.0); HEMATOCRIT 39.9 % (37.0-47.0); HEMOGLOBIN 13.9 g/dl (12.0-16.0); IMMATURE GRANULOCYTE # (AUTO) 0.1 (0.0-1.0); IMMATURE GRANULOCYTE % (AUTO) 0.5 % (0.0-5.0); LYMPHOCYTES # (AUTO) 3.7 K/uL (0.60-3.4); LYMPHOCYTES % (AUTO) 30.1 (10.0-50.0); MEAN CORPUSCULAR HEMOGLOBIN 32.5 pg (27.0-31.0); MEAN CORPUSCULAR HGB CONC 34.8 (31.8-35.4); MEAN CORPUSCULAR VOLUME 93.2 fl (81.0-99.0); MONOCYTES # (AUTO) 0.5 K/uL (0.4-2.0); MONOCYTES % (AUTO) 4.1 (0-10); NEUTROPHILS % (AUTO) 64.2 % (42.2-75.2); PLATELET COUNT 359 10^3/uL (140-440); RED BLOOD COUNT 4.28 10^6/ul (4.20-5.40); WHITE BLOOD COUNT 12.43 K/ul (4.6-10.2)
[2021-11-27 13:12] LABS: SERUM PREGNANCY NEGATIVE (NEGATIVE)
[2021-11-27 13:15] LABS: ALANINE AMINOTRANSFERASE 21.7 U/L (0-35); ALBUMIN 5.44 g/dL (3.5-5.0); ALKALINE PHOSPHATASE 49.5 U/L (38-126); BILIRUBIN,TOTAL 0.49 mg/dL (0.2-1.3); BLOOD UREA NITROGEN 15.2 mg/dL (7-17); CALCIUM 9.81 mg/dL (8.4-10.2); CARBON DIOXIDE 23.7 mmol/L (22-30.0); CHLORIDE 105.1 mmol/L (98-107); CREATININE 1.08 mg/dL (0.60-1.30); GLUCOSE 103.9 mg/dL (74-106); LIPASE 82.9 U/L (23-300); POTASSIUM 3.9 mmol/L (3.5-5.1); SODIUM 145.3 mmol/L (134.5-145); TOTAL PROTEIN 8.13 g/dL (6.3-8.2)
--- NOTE | 2021-11-27 14:13 | CT ---
EXAM: CT Abdomen without contrast. CT Pelvis without contrast. HISTORY: Abdominal pain. Nausea, vomiting, diarrhea. COMPARISON: 08/01/2019. TECHNIQUE: Multiple axial images of the abdomen and pelvis were obtained without intravenous contras t. Images were reformatted in the sagittal and coronal plane. FINDINGS: Please note that evaluation of the abdominal and pelvic structures is limited due to lack of intravenous contrast. Lung bases clear. No acute osseous abnormality. Liver is enlarged. Gallbladder, pancreas, spleen, adrenal glands, and kidneys are normal. No bowel obstruction or acute inflammation. Suspect prior appendectomy. Uterus demonstrates normal contour. Probable cystic lesion in the right adnexa measuring up to 4.3 c m maximum diameter on axial image 65. Uterus demonstrates normal contour. Bladder normal. Phleboliths in the pelvis. Trace amount free pelvic fluid. No free air. Aorta normal in caliber. Small fatty umbilical hernia. IMPRESSION: 1. No acute abnormality in the abdomen or pelvis. 2. Hepatomegaly. 3. Probable right adnexal cyst. Consider follow-up ultrasound. All CT scans are performed using dose optimization techniques as appropriate to the performed exam an d include at least one of the following: Automated exposure control, adjustment of the mA and/or kV according t o size, and the use of iterative reconstruction technique.
--- NOTE | 2021-11-27 15:22 | US ---
EXAM: Ultrasound Transvaginal Non-obstetrical. HISTORY: Right adnexal mass. COMPARISON: CT earlier the same day. Ultrasound 11/19/2018. TECHNIQUE: Lewis scale and color doppler images with transvaginal probe. FINDINGS: Uterus measures 7.6 x 4 x 1 x 4.6 cm. Myometrium homogeneous. Endometrial stripe 0.9 cm. Nabothian cysts in the cervix. Right ovary measures 4.5 x 3.2 x 3.1 cm and contains a thin-walled circumscribed anechoic mass measur ing up to 2.4 cm maximum diameter. Left ovary measures 3 x 1.6 x 2.3 cm and contains multiple small follicles. Vascular flow in both ovaries. Small amount of free pelvic fluid. IMPRESSION: 1. Dominant right ovarian follicle versus small simple cyst. 2. Small amount free pelvic fluid which is within physiologic range.
[2021-11-27] MEDS ORDERED: TYLENOL PO PRN (16:20)
[2021-11-27] MEDS ORDERED: HUMULIN R SUBCUT PRN (16:20)
[2021-11-27] MEDS ORDERED: ZOFRAN 4 MG/2 ML IVP PRN (16:20)
[2021-11-27] MEDS: SODIUM CHLORIDE 1,000 ML IV SCH (17:44)
[2021-11-27] MEDS: ROCEPHIN 1 GM/50 ML D5W 1 GM/50 ML BAG IV SCH (17:44)
[2021-11-27 18:14] LABS: BILIRUBIN,URINE Negative (NEGATIVE); CLARITY,URINE Clear (CLEAR); COLOR,URINE Yellow (YELLOW); GLUCOSE, URINE (UA) Negative (NEGATIVE); KETONES,URINE Negative (NEGATIVE); LEUKOCYTE ESTERASE ,URINE Negative (NEGATIVE); NITRITE,URINE Negative (NEGATIVE); PROTEIN,URINE Trace (NEGATIVE); URINE, BLOOD Negative (NEGATIVE); UROBILINOGEN,URINE 0.2 (0.2)
[2021-11-27 18:58] VITALS: BMI 29.2
[2021-11-27] MEDS: ATIVAN PO SCH (20:45)
[2021-11-28] MEDS: SODIUM CHLORIDE 1,000 ML IV SCH (02:01)
[2021-11-28 05:49] LABS: BASOPHILS # (AUTO) 0.1 K/uL (0-0.2); BASOPHILS % (AUTO) 0.7 % (0.0-3.0); EOSINOPHILS # (AUTO) 0.1 K/ul (0.0-0.7); EOSINOPHILS % (AUTO) 1.4 % (0.0-7.0); HEMATOCRIT 33.4 % (37.0-47.0); HEMOGLOBIN 11.3 g/dl (12.0-16.0); IMMATURE GRANULOCYTE % (AUTO) 0.3 % (0.0-5.0); LYMPHOCYTES # (AUTO) 3.9 K/uL (0.60-3.4); LYMPHOCYTES % (AUTO) 38.3 (10.0-50.0); MEAN CORPUSCULAR HEMOGLOBIN 32.5 pg (27.0-31.0); MEAN CORPUSCULAR HGB CONC 33.8 (31.8-35.4); MONOCYTES # (AUTO) 0.4 K/uL (0.4-2.0); MONOCYTES % (AUTO) 4.1 (0-10); NEUTROPHILS # (AUTO) 5.6 K/ul (2.0-6.9); NEUTROPHILS % (AUTO) 55.2 % (42.2-75.2); PLATELET COUNT 255 10^3/uL (140-440); RDW COEFFICIENT OF VARIATION 12.9 % (11.6-14.8); RED BLOOD COUNT 3.48 10^6/ul (4.20-5.40); WHITE BLOOD COUNT 10.16 K/ul (4.6-10.2)
[2021-11-28 06:10] LABS: ALANINE AMINOTRANSFERASE 16.2 U/L (0-35); ALBUMIN 3.9 g/dL (3.5-5.0); ALKALINE PHOSPHATASE 41.7 U/L (38-126); ASPARTATE AMINO TRANSFERASE 22.8 U/L (14-36); BILIRUBIN,TOTAL 0.77 mg/dL (0.2-1.3); BLOOD UREA NITROGEN 12.7 mg/dL (7-17); CALCIUM 8.55 mg/dL (8.4-10.2); CREATININE 0.74 mg/dL (0.60-1.30); GLUCOSE 88.2 mg/dL (74-106); POTASSIUM 3.32 mmol/L (3.5-5.1); SODIUM 137.5 mmol/L (134.5-145); TOTAL PROTEIN 5.87 g/dL (6.3-8.2)
[2021-11-28] MEDS: ATIVAN PO SCH (08:51)
[2021-11-28] MEDS: ROCEPHIN 1 GM/50 ML D5W 1 GM/50 ML BAG IV SCH (08:51)
--- NOTE | 2021-11-28 09:14 | PCM.PROG ---
Date Seen by Provider: 11/28/21 Time Seen by Provider: 09:12 Subjective: pt improved, no NV, no pain, wants to go home Objective: Vitals: T=98.2 F, P=68, R=18, BP=98/61, SPO2=98 HEENT: []conjunctiva clear Neck: []supple Lungs: [] no respiratory distress CVS: [] Abdomen: []nondistended Extremities: []sallie Neurological: []alert and oriented Skin: []pink Lab/Tests/Diagnostic Imaging: [] u/a 11/27 grossly normal Plan: see Dr Mosquera, oral fluids, rest, differential includes viral syndrome
--- NOTE | 2021-11-28 09:16 | PCM.DC ---
Final Diagnosis: vomiting Physical Exam Appearance: Well-appearing Ill-appearing: None Pain Distress: None Eyes: Conjunctiva clear ENT: Not Examined Neck: Supple Respiratory: Airway patent Cardiovascular: Not Examined GI/: Other (nondistended) Musculoskeletal: ROM intact Skin: Normal color Neurological: Alert and Oriented Psychiatric: Affect appropriate Reason for Hospitalization: vomiting Prognosis/Condition at Discharge: good Medications at Discharge: Ambulatory Orders Medication Instructions Recorded lorazepam 0.5 mg tablet (Ativan) 0.5 mg PO BID 12/15/16 pantoprazole 40 mg tablet,delayed 40 mg PO DAILY 12/15/16 release (Protonix) metoprolol succinate 100 mg 100 mg PO DAILY 11/19/18 tablet,extended release 24 hr lisinopril 20 mg tablet 40 mg PO DAILY 12/03/18 nifedipine 60 mg tablet,extended 60 mg PO DAILY 02/28/20 release 24 hr cholecalciferol (vitamin D3) 125 5,000 mcg PO WEEKLY 12/09/20 mcg (5,000 unit) tablet (Vitamin D3) atorvastatin 20 mg tablet 20 mg PO BEDTIME 12/17/20 clonidine HCl 0.2 mg tablet 0.2 mg PO TID PRN 03/15/21 ondansetron 8 mg disintegrating 8 mg PO Q8H PRN #30 tab 10/17/21 tablet hydralazine 25 mg tablet 25 mg PO BEDTIME 11/27/21 hydralazine 50 mg tablet 50 mg PO QAM 11/27/21 Lab/Diagnostics: u/a 11/27 grossly normal Education Provided to Patient and Family: oral fluids, rest Follow-ups: see Dr Mosquera Discharge Disposition: Home Hospital Course: improved, +oral intake Plan: home
[2021-11-28] MEDS ORDERED: K-DUR PO ONE (10:07)
[2021-11-28 10:40] VITALS: BP 116/74; TEMP 97.9
== END 2021-11-28 12:30 | disposition home or self-care (01) ==
LOC: ED 12:17 → MEDSURG A 12:17
PROVIDERS: ADMIT Emergency Medicine Emergency Medical Services; ATTEND Emergency Medicine Emergency Medical Services
DX: R11.10 Vomiting, unspecified; Z51.81 Encounter for therapeutic drug level monitoring; Z20.822 Contact with and (suspected) exposure to COVID-19; Z79.899 Other long term (current) drug therapy